=== PATIENT | male | born 1975 | race Caucasian/White ===

== ENCOUNTER → 2017-12-29 | Outpatient (CLI) | payer OTHER ==
--- NOTE | 2017-12-29 16:00 | P.STRESS ---
- Stress Test Note Stress Test Results/Findings: Exam Performed: stress test Exam Date: 12/29/17 Reason for Exam: ABN EKG Height: 5 ft 7 in Weight: 90.718 kg Protocol: Jus Stage: 3 Duration of Exercise: 11:08 Resting Heart Rate: 154 Resting Blood Pressure: 138/94 Maximum Achieved Heart Rate: 154 Maximum Achieved Blood Pressure: 205/95 85% PMHR: 153 100% PMHR: 180 METS: 12.1 Technologist Comment: Stress Test Results/Findings: This is a 42-year-old gentleman with history of hypertension, smoking and family history of ischemic heart disease being evaluated for cardiac status because of abnormal EKG. Baseline EKG showed normal OR interval and QRS duration. Blood pressure at rest is 138/94 with pulse rate of 70. Patient walked on the Jus protocol for 11 minutes achieving a maximum heart rate of 154 with a blood pressure of 201/82. EKGs taken during and after the exercise did not reveal any significant changes from the baseline. Patient did not experience any chest pain. Final impression: #1. Negative stress test #2 . Good exercise capacity #3. No arrhythmias are detected #4. Patient did not express any chest pain
== END | disposition home or self-care (01) ==
LOC: RADNMMAIN 10:55
PROVIDERS: ATTEND Nurse Practitioner Adult Health
DX: R94.31 Abnormal electrocardiogram [ECG] [EKG] (principal)
CPT/HCPCS: 93017

== ENCOUNTER 2019-04-10 03:07 | Emergency (ER) | payer OTHER ==
[2019-04-10 03:25] VITALS: RESP 18
[2019-04-10] MEDS ORDERED: SODIUM CHLORIDE 0.9% 1,000 ML IV ONE (04:07)
[2019-04-10 04:17] LABS: Basophils # (A) 0.1 k/uL (0-0.2); Basophils % (A) 0 %; Eosinophils # (A) 0.2 k/uL (0-0.7); Eosinophils % (A) 2 %; HCT 43.6 % (39.0-53.0); HGB 14.6 gm/dL (13.0-17.5); Lymphocytes # (A) 3.5 k/uL (1.0-4.8); Lymphocytes % (A) 26 %; MCHC 33.5 g/dL (31.0-37.0); MCV 86.6 fL (80.0-100.0); Mean Platelet Volume 6.7; Monocytes # (A) 0.8 k/uL (0-1.0); Monocytes % (A) 6 %; Neutrophils # (A) 8.9 k/uL (1.3-7.7); Neutrophils % (A) 65 %; Platelet Count 284 k/uL (150-450); RBC 5.04 m/uL (4.30-5.90); RDW 13.4 % (11.5-15.5); WBC 13.7 k/uL (3.8-10.6)
--- NOTE | 2019-04-10 04:27 | XR ---
EXAM: XR Abdomen, 2 Views CLINICAL HISTORY: abdominal pain TECHNIQUE: Frontal view of the abdomen/pelvis with upright view of the abdomen. COMPARISON: No relevant prior studies available. FINDINGS: Intraperitoneal space: No free air. Gastrointestinal tract: Unremarkable. No dilation. Bones/joints: Unremarkable. IMPRESSION: Normal abdominal x-rays.
[2019-04-10 04:28] LABS: Appearance,Urine Clear (Clear); Bilirubin,Urine Negative (Negative); Blood,Urine Small (Negative); Color,Urine Light Yellow; Glucose,Urine (UA) Negative (Negative); Hyaline Casts,Urine 1 /lpf (0-2); Ketones,Urine Negative (Negative); Leukocyte Esterase,Urine Negative (Negative); Mucus,Urine Rare /hpf; Nitrite,Urine Negative (Negative); Protein,Urine Negative (Negative); RBC,Urine 5 /hpf (0-5); Specific Gravity,Urine 1.016 (1.001-1.035); Urobilinogen,Urine <2.0 mg/dL (<2.0); WBC,Urine 1 /hpf (0-5)
[2019-04-10 04:36] LABS: ALT 31 U/L (21-72); AST 36 U/L (17-59); African American GFR (CKD) >90 (>60 ml/min/1.73 sqM); Albumin 4.4 g/dL (3.5-5.0); Alkaline Phosphatase 118 U/L (38-126); Amylase 71 U/L (30-110); Anion Gap 11 mmol/L; Blood Urea Nitrogen 18 mg/dL (9-20); Calcium 9.1 mg/dL (8.4-10.2); Carbon Dioxide 29 mmol/L (22-30); Chloride 95 mmol/L (98-107); Glucose 119 mg/dL (74-99); Lipase 61 U/L (23-300); Sodium 135 mmol/L (137-145); Total Bilirubin 0.7 mg/dL (0.2-1.3)
[2019-04-10] MEDS ORDERED: ONDANSETRON 4 MG/2 ML VIAL IVP STA (04:41)
[2019-04-10] MEDS ORDERED: KETOROLAC 30 MG/ML 1 ML VIAL IVP STA (04:41)
[2019-04-10 04:48] LABS: Potassium 3.5 mmol/L (3.5-5.1)
--- NOTE | 2019-04-10 04:50 | ED ---
Abdominal Pain HPI - General Chief Complaint: Abdominal Pain Stated Complaint: Abd Pain Source: patient Mode of arrival: ambulatory Limitations: no limitations - History of Present Illness Initial Comments: Aixa is a previously healthy 44-year-old male who presents the emergency department today for evaluation of sudden onset of stabbing left-sided flank pain that woke him from sleep. Patient does report a history of kidney stones 3-4 years ago, he does not follow with urology. He reports he was in his usual state of health when he went to bed last night. He woke suddenly around 3 AM with a stabbing pain in his left flank and urinary frequency. Patient reports nausea secondary to pain but has had no vomiting or diarrhea. He has no associated fevers chills or abdominal pain. - Related Data Home Medications Medication Instructions Recorded Confirmed Chlorothiazide [Diuril] 04/10/19 Previous Rx's Medication Instructions Recorded HYDROcodone/APAP 5-325MG [[place] 1 tab PO Q6HR PRN 3 Days #12 tab 04/10/19 5-325] Ondansetron [Zofran ODT] 4 mg PO Q8HR #12 tab 04/10/19 Tamsulosin [Flomax] 0.4 mg PO DAILY #7 cap 04/10/19 Allergies Allergy/AdvReac Type Severity Reaction Status Date / Time moxifloxacin HCl AdvReac Rash/Hives Verified 07/10/15 06:42 [From Avelox] prochlorperazine edisylate AdvReac Confusion Verified 07/10/15 06:42 [From Compazine] prochlorperazine maleate AdvReac Confusion Verified 07/10/15 06:42 [From Compazine] Review of Systems ROS Statement: Those systems with pertinent positive or pertinent negative responses have been documented in the HPI. ROS Other: All systems not noted in ROS Statement are negative. Past Medical History Past Medical History: Hypertension Additional Past Medical History / Comment(s): Kidney stones History of Any Multi-Drug Resistant Organisms: None Reported Past Surgical History: Ear Surgery Past Psychological History: No Psychological Hx Reported Smoking Status: Former smoker Past Alcohol Use History: Occasional Past Drug Use History: None Reported General Exam - General Exam Comments Initial Comments: Physical Exam GENERAL: Appears uncomfortable, cannot find a position of comfort HENT: Normocephalic, Atraumatic. EYES: PERRL, EOMI PULMONARY: Unlabored respirations. No audible rales rhonchi or wheezing was noted. CARDIOVASCULAR: There is a regular rate and rhythm without any murmurs gallops or rubs. ABDOMEN: Soft and nontender with normal bowel sounds. Tenderness to percussion of the left flank Bedside ultrasound reveals mild hydronephrosis of the left kidney, right kidney appears normal no stones were visible SKIN: Skin is clear with no lesions or rashes and otherwise unremarkable. : Deferred NEUROLOGIC: Patient is alert and oriented x3. Moving all extremities spontaneously MUSCULOSKELETAL: Normal extremities with adequate strength and full range of motion. No lower extremity swelling or edema. No calf tenderness. PSYCHIATRIC: Normal psychiatric evaluation Limitations: no limitations Course Vital Signs 04/10/19 04/10/19 04/10/19 03:11 03:24 04:53 Temperature 97.5 F L 98.0 F Pulse Rate 85 76 67 Respiratory 20 18 18 Rate Blood Pressure 135/86 135/86 116/79 O2 Sat by Pulse 100 99 98 Oximetry Medical Decision Making - Medical Decision Making The patient was seen and evaluated, history was obtained from the patient This is a healthy 44-year-old male presenting with sudden onset of stabbing left-sided flank pain Urine does have trace blood, CBC with mild leukocytosis likely reactive to pain BMP is unremarkable Patient received Toradol and Zofran for pain management She reported resolution of his pain with Toradol. Patient will be discharged home with a short dose of [place], Zofran for nausea and Flomax. Patient will be referred to urology for follow-up. Close return parameters were discussed all questions pertaining care were answered patient was discharged home in stable condition. - Lab Data Result diagrams: 04/10/19 03:25 04/10/19 03:25 Lab Results 04/10/19 04/10/19 04/10/19 Range/Units 03:25 03:25 03:25 WBC 13.7 H (3.8-10.6) k/uL RBC 5.04 (4.30-5.90) m/uL Hgb 14.6 (13.0-17.5) gm/dL Hct 43.6 (39.0-53.0) % MCV 86.6 (80.0-100.0) fL MCH 29.0 (25.0-35.0) pg MCHC 33.5 (31.0-37.0) g/dL RDW 13.4 (11.5-15.5) % Plt Count 284 (150-450) k/uL Neutrophils % 65 % Lymphocytes % 26 % Monocytes % 6 % Eosinophils % 2 % Basophils % 0 % Neutrophils # 8.9 H (1.3-7.7) k/uL Lymphocytes # 3.5 (1.0-4.8) k/uL Monocytes # 0.8 (0-1.0) k/uL Eosinophils # 0.2 (0-0.7) k/uL Basophils # 0.1 (0-0.2) k/uL Sodium 135 L (137-145) mmol/L Potassium 3.5 (3.5-5.1) mmol/L Chloride 95 L (98-107) mmol/L Carbon Dioxide 29 (22-30) mmol/L Anion Gap 11 mmol/L BUN 18 (9-20) mg/dL Creatinine 0.89 (0.66-1.25) mg/dL Est GFR (CKD-EPI)AfAm >90 (>60 ml/min/1.73 sqM) Est GFR (CKD-EPI)NonAf >90 (>60 ml/min/1.73 sqM) Glucose 119 H (74-99) mg/dL Calcium 9.1 (8.4-10.2) mg/dL Total Bilirubin 0.7 (0.2-1.3) mg/dL AST 36 (17-59) U/L ALT 31 (21-72) U/L Alkaline Phosphatase 118 (38-126) U/L Total Protein 7.0 (6.3-8.2) g/dL Albumin 4.4 (3.5-5.0) g/dL Amylase 71 (30-110) U/L Lipase 61 (23-300) U/L Urine Color Light Yellow Urine Appearance Clear (Clear) Urine pH 6.0 (5.0-8.0) Ur Specific [place] 1.016 (1.001-1.035) Urine Protein Negative (Negative) Urine Glucose (UA) Negative (Negative) Urine Ketones Negative (Negative) Urine Blood Small H (Negative) Urine Nitrite Negative (Negative) Urine Bilirubin Negative (Negative) Urine Urobilinogen <2.0 (<2.0) mg/dL Ur Leukocyte Esterase Negative (Negative) Urine RBC 5 (0-5) /hpf Urine WBC 1 (0-5) /hpf Hyaline Casts 1 (0-2) /lpf Urine Mucus Rare H (None) /hpf Disposition Clinical Impression: Acute left flank pain Disposition: HOME SELF-CARE Condition: Stable Instructions (If sedation given, give patient instructions): Kidney Stones (ED) Prescriptions: Tamsulosin [Flomax] 0.4 mg PO DAILY #7 cap HYDROcodone/APAP 5-325MG [[place] 5-325] 1 tab PO Q6HR PRN 3 Days #12 tab PRN Reason: Pain Ondansetron [Zofran ODT] 4 mg PO Q8HR #12 tab Is patient prescribed a controlled substance at d/c from ED?: Yes If prescribed controlled substance>3 days was MAPS reviewed?: Prescribed <3 Days Referrals: Ray Person MD [Primary Care Provider] - 1-2 days Mateo Mahmood MD [STAFF PHYSICIAN] - 1-2 days
[2019-04-10 04:55] VITALS: BP 116/79; PULSE 67; TEMP 98
== END 2019-04-10 05:35 | disposition home or self-care (01) ==
LOC: EC 03:07
DX: R10.9 Unspecified abdominal pain (principal); R35.0 Frequency of micturition; R11.0 Nausea; D72.829 Elevated white blood cell count, unspecified; I10 Essential (primary) hypertension; Z79.899 Other long term (current) drug therapy; Z88.1 Allergy status to other antibiotic agents; Z88.8 Allergy status to other drugs, medicaments and biological substances; Z87.891 Personal history of nicotine dependence; Z87.442 Personal history of urinary calculi
CPT/HCPCS: 36415; 80053; 82150; 83690; 85025; 81001; 74018; 99284; 96374; 96375; 96361; J2405; J1885

== ENCOUNTER → 2019-10-13 | Outpatient (CLI) | payer OTHER ==
--- NOTE | 2019-10-13 13:04 | US ---
EXAMINATION TYPE: US thyroid st tissue head/neck DATE OF EXAM: 10/13/2019 COMPARISON: NONE CLINICAL HISTORY: Cervical lymphadenitis I88.9. Pt states palpable left submandibular area x month, changes in size when pt eats Left submandibular area where pt feels palpable lump shows submandibular gland= 3.0 x 1.5 x 3.2 cm, adjacent normal appearing lymph node also visualized= 0.5 cm Right submandibular gland also scanned for comparison, appeared similar to left IMPRESSION: Normal soft tissue neck. Submandibular gland is at the level of the palpable region on the left.
== END ==
LOC: RADUSWWP 12:06
PROVIDERS: ATTEND Nurse Practitioner Adult Health
DX: I88.9 Nonspecific lymphadenitis, unspecified (principal)
CPT/HCPCS: 76536

== ENCOUNTER 2020-02-08 21:47 | Emergency (ER) | payer OTHER ==
[2020-02-08 21:53] VITALS: RESP 18
--- NOTE | 2020-02-08 22:49 | XR ---
EXAMINATION TYPE: XR chest 1V portable DATE OF EXAM: 02/08/2020 COMPARISON: NONE HISTORY: Cough and congestion TECHNIQUE: Single view FINDINGS: There is no heart failure nor confluent pneumonic infiltrate. Costophrenic angles are clear . There are no hilar masses. Bony thorax is intact. IMPRESSION: No active cardiopulmonary disease.
[2020-02-08 23:17] LABS: Basophils % (A) 0 %; Eosinophils % (A) 0 %; HCT 47.8 % (39.0-53.0); HGB 16.2 gm/dL (13.0-17.5); Lymphocytes # (A) 2.1 k/uL (1.0-4.8); Lymphocytes % (A) 9 %; MCH 30.1 pg (25.0-35.0); MCHC 33.9 g/dL (31.0-37.0); MCV 88.7 fL (80.0-100.0); Mean Platelet Volume 7.1; Monocytes % (A) 4 %; Neutrophils # (A) 20.8 k/uL (1.3-7.7); Neutrophils % (A) 86 %; Platelet Count 276 k/uL (150-450); RBC 5.39 m/uL (4.30-5.90); RDW 12.9 % (11.5-15.5)
[2020-02-08 23:34] LABS: ALT 47 U/L (4-49); AST 33 U/L (17-59); African American GFR (CKD) >90 (>60 ml/min/1.73 sqM); Albumin 4.8 g/dL (3.5-5.0); Alkaline Phosphatase 101 U/L (38-126); Anion Gap 8 mmol/L; Blood Urea Nitrogen 22 mg/dL (9-20); Carbon Dioxide 32 mmol/L (22-30); Chloride 94 mmol/L (98-107); Glucose 120 mg/dL (74-99); Non-African American GFR(CKD) 89 (>60 ml/min/1.73 sqM); Potassium 3.5 mmol/L (3.5-5.1); Sodium 134 mmol/L (137-145); Total Bilirubin 0.3 mg/dL (0.2-1.3); Total Protein 7.5 g/dL (6.3-8.2)
[2020-02-09] MEDS ORDERED: AZITHROMYCIN 500 MG TAB PO STA (00:44)
--- NOTE | 2020-02-09 00:51 | ED ---
General Adult HPI - General Chief complaint: Upper Respiratory Infection Stated complaint: Cough Time Seen by Provider: 02/08/20 21:50 Source: patient Mode of arrival: ambulatory Limitations: no limitations - History of Present Illness Initial comments: The patient is a 45-year-old male with past medical history of hypertension and presents emergency room report a cough. He states that he has had cough, congestion and shortness of breath for the past week. He followed up in his primary care office on Wednesday. They did perform a chest x-ray and diagnosed him with pneumonia. He was started on Ceftin, prednisone and inhaler. States he's been using medications as directed however continues to feel short of breath and have coughing fits. States his coughing fits or so severe that he has passed out several times and hit his head. He denies any headaches or visual changes. No underlying lung conditions. Denies fevers or chills. No chest pain or history of cardiac disease. There are no alleviating, precipitating or modifying factors - Related Data Home Medications Medication Instructions Recorded Confirmed Chlorothiazide [Diuril] 04/10/19 Previous Rx's Medication Instructions Recorded HYDROcodone/APAP 5-325MG [[place] 1 tab PO Q6HR PRN 3 Days #12 tab 04/10/19 5-325] Ondansetron [Zofran ODT] 4 mg PO Q8HR #12 tab 04/10/19 Tamsulosin [Flomax] 0.4 mg PO DAILY #7 cap 04/10/19 Azithromycin [Zithromax Z-pack] 0 mg PO DIRECTED #1 pack 02/09/20 guaiFENesin-Coden 100-10MG/5ML 10 ml PO Q6H PRN 3 Days #120 ml 02/09/20 [Robitussin AC] Allergies Allergy/AdvReac Type Severity Reaction Status Date / Time moxifloxacin HCl AdvReac Rash/Hives Verified 02/08/20 21:54 [From Avelox] prochlorperazine edisylate AdvReac Confusion Verified 02/08/20 21:54 [From Compazine] prochlorperazine maleate AdvReac Confusion Verified 02/08/20 21:54 [From Compazine] Review of Systems ROS Statement: Those systems with pertinent positive or pertinent negative responses have been documented in the HPI. ROS Other: All systems not noted in ROS Statement are negative. Past Medical History Past Medical History: Hypertension Additional Past Medical History / Comment(s): Kidney stones History of Any Multi-Drug Resistant Organisms: None Reported Past Surgical History: Ear Surgery Past Psychological History: No Psychological Hx Reported Smoking Status: Former smoker Past Alcohol Use History: Occasional Past Drug Use History: None Reported General Exam Limitations: no limitations General appearance: alert, in no apparent distress Head exam: Present: atraumatic, normocephalic, normal inspection Eye exam: Present: normal appearance, PERRL, EOMI. Absent: scleral icterus, conjunctival injection, periorbital swelling ENT exam: Present: normal exam, mucous membranes moist Neck exam: Present: normal inspection. Absent: tenderness, meningismus, lymphadenopathy Respiratory exam: Present: normal lung sounds bilaterally, other (bronchospastic cough). Absent: respiratory distress, wheezes, rales, rhonchi, stridor Cardiovascular Exam: Present: regular rate, normal rhythm, normal heart sounds. Absent: systolic murmur, diastolic murmur, rubs, gallop, clicks GI/Abdominal exam: Present: soft, normal bowel sounds. Absent: distended, tenderness, guarding, rebound, rigid Extremities exam: Present: normal inspection, full ROM, normal capillary refill. Absent: tenderness, pedal edema, joint swelling, calf tenderness Back exam: Present: normal inspection Neurological exam: Present: alert, oriented X3, CN II-XII intact Psychiatric exam: Present: normal affect, normal mood Skin exam: Present: warm, dry, intact, normal color. Absent: rash Course Vital Signs 02/08/20 02/08/20 02/09/20 21:48 23:30 00:57 Temperature 97.4 F L 98.1 F Pulse Rate 96 84 88 Respiratory 18 18 18 Rate Blood Pressure 173/104 149/89 156/85 O2 Sat by Pulse 98 96 97 Oximetry Medical Decision Making - Medical Decision Making Upon arrival the patient is placed into room 16. A thorough history and physical exam is performed. Pulse ox is 96%. No increased work of breathing. I did recommend laboratory studies as the patient does appear to be feeling his outpatient treatment. We'll also consult elevated at 24,000. Lactic acid is 2.4. Influenza A/B are not detected. The patient was tested for covid at [facility] and was negative. Chest x-ray demonstrates no acute findings. Discussed diagnosis, differential and treatment options. I did recommend hospital admission for IV antibiotics however the patient refused as he is concerned about the current Covid pandemic. Patient feels more comfortable going home. I will add azithromycin to his home regimen. I will also provide the patient with prescription for Robitussin-AC. He does sign an opiate start talking form. The patient was have repeat blood work in 1 week to ensure that his white blood cell count has improved. The patient has no improvement in symptoms he must return for hospital admission. Patient was in agreement this and he was discharged home in stable condition - Lab Data Result diagrams: 02/08/20 23:05 02/08/20 23:00 Lab Results 02/08/20 02/08/20 02/08/20 Range/Units 22:45 23:00 23:00 WBC (3.8-10.6) k/uL RBC (4.30-5.90) m/uL Hgb (13.0-17.5) gm/dL Hct (39.0-53.0) % MCV (80.0-100.0) fL MCH (25.0-35.0) pg MCHC (31.0-37.0) g/dL RDW (11.5-15.5) % Plt Count (150-450) k/uL Neutrophils % % Lymphocytes % % Monocytes % % Eosinophils % % Basophils % % Neutrophils # (1.3-7.7) k/uL Lymphocytes # (1.0-4.8) k/uL Monocytes # (0-1.0) k/uL Eosinophils # (0-0.7) k/uL Basophils # (0-0.2) k/uL Sodium 134 L (137-145) mmol/L Potassium 3.5 (3.5-5.1) mmol/L Chloride 94 L (98-107) mmol/L Carbon Dioxide 32 H (22-30) mmol/L Anion Gap 8 mmol/L BUN 22 H (9-20) mg/dL Creatinine 1.03 (0.66-1.25) mg/dL Est GFR (CKD-EPI)AfAm >90 (>60 ml/min/1.73 sqM) Est GFR (CKD-EPI)NonAf 89 (>60 ml/min/1.73 sqM) Glucose 120 H (74-99) mg/dL Lactic Ac Sepsis Rflx Plasma Lactic Acid Oziel 2.4 H* (0.7-2.0) mmol/L Calcium 10.0 (8.4-10.2) mg/dL Total Bilirubin 0.3 (0.2-1.3) mg/dL AST 33 (17-59) U/L ALT 47 (4-49) U/L Alkaline Phosphatase 101 (38-126) U/L Total Protein 7.5 (6.3-8.2) g/dL Albumin 4.8 (3.5-5.0) g/dL Influenza Type A RNA Not Detected (Not Detectd) Influenza Type B (PCR) Not Detected (Not Detectd) 02/08/20 02/08/20 Range/Units 23:05 23:45 WBC 24.0 H (3.8-10.6) k/uL RBC 5.39 (4.30-5.90) m/uL Hgb 16.2 (13.0-17.5) gm/dL Hct 47.8 (39.0-53.0) % MCV 88.7 (80.0-100.0) fL MCH 30.1 (25.0-35.0) pg MCHC 33.9 (31.0-37.0) g/dL RDW 12.9 (11.5-15.5) % Plt Count 276 (150-450) k/uL Neutrophils % 86 % Lymphocytes % 9 % Monocytes % 4 % Eosinophils % 0 % Basophils % 0 % Neutrophils # 20.8 H (1.3-7.7) k/uL Lymphocytes # 2.1 (1.0-4.8) k/uL Monocytes # 1.0 (0-1.0) k/uL Eosinophils # 0.0 (0-0.7) k/uL Basophils # 0.0 (0-0.2) k/uL Sodium (137-145) mmol/L Potassium (3.5-5.1) mmol/L Chloride (98-107) mmol/L Carbon Dioxide (22-30) mmol/L Anion Gap mmol/L BUN (9-20) mg/dL Creatinine (0.66-1.25) mg/dL Est GFR (CKD-EPI)AfAm (>60 ml/min/1.73 sqM) Est GFR (CKD-EPI)NonAf (>60 ml/min/1.73 sqM) Glucose (74-99) mg/dL Lactic Ac Sepsis Rflx Y Plasma Lactic Acid Oziel (0.7-2.0) mmol/L Calcium (8.4-10.2) mg/dL Total Bilirubin (0.2-1.3) mg/dL AST (17-59) U/L ALT (4-49) U/L Alkaline Phosphatase (38-126) U/L Total Protein (6.3-8.2) g/dL Albumin (3.5-5.0) g/dL Influenza Type A RNA (Not Detectd) Influenza Type B (PCR) (Not Detectd) Disposition Clinical Impression: Cough, Leukocytosis Disposition: HOME SELF-CARE Condition: Stable Instructions (If sedation given, give patient instructions): Upper Respiratory Infection (ED) Additional Instructions: Please follow-up with Dr. Person. I do want him to repeat your white blood cell count in one week. Return to the ED for any new or worsening symptoms. Continue taking the other antibiotics and steroids Prescriptions: guaiFENesin-Coden 100-10MG/5ML [Robitussin AC] 10 ml PO Q6H PRN 3 Days #120 ml PRN Reason: cough Azithromycin [Zithromax Z-pack] 0 mg PO DIRECTED #1 pack Is patient prescribed a controlled substance at d/c from ED?: Yes When asked, does pt state using other controlled substances?: No If prescribed controlled substance>3 days was MAPS reviewed?: Prescribed <3 Days If opioid is for acute pain is fill amount 7 days or less?: Yes If Rx opioid, was Start Talking consent form obtained?: Yes Referrals: Ray Person MD [Primary Care Provider] - 1-2 days Time of Disposition: 00:51
[2020-02-09 00:57] VITALS: BP 156/85; PULSE 88; TEMP 98.1
== END 2020-02-09 00:57 | disposition home or self-care (01) ==
LOC: EC 21:47
DX: D72.829 Elevated white blood cell count, unspecified (principal); R05 Cough; R06.02 Shortness of breath; R09.89 Other specified symptoms and signs involving the circulatory and respiratory systems; I10 Essential (primary) hypertension; Z79.899 Other long term (current) drug therapy; Z87.891 Personal history of nicotine dependence; Z88.1 Allergy status to other antibiotic agents; Z88.8 Allergy status to other drugs, medicaments and biological substances
CPT/HCPCS: 36415; 71045; 80053; 83605; 85025; 87502; 99283

== ENCOUNTER 2020-02-18 13:52 | Inpatient (IN) | payer OTHER ==
[2020-02-18] MEDS ORDERED: SODIUM CHLORIDE 0.9% 1,000 ML IV ONE (14:34)
[2020-02-18] MEDS ORDERED: methylPREDNISolone SOD SUCCI 125 MG/2 ML VIAL IV STA (14:34)
[2020-02-18] MEDS ORDERED: IPRATROPIUM-ALBUTEROL 3 ML NEB INHALATION STA (14:34)
[2020-02-18] MEDS ORDERED: ALBUTEROL NEB (CONC) 2.5 MG/0.5 ML INHALATION STA (14:34)
[2020-02-18 15:03] LABS: Basophils # (A) 0.1 k/uL (0-0.2); Basophils % (A) 1 %; Eosinophils # (A) 0.4 k/uL (0-0.7); Eosinophils % (A) 3 %; HCT 46.5 % (39.0-53.0); HGB 15.3 gm/dL (13.0-17.5); Lymphocytes # (A) 2.1 k/uL (1.0-4.8); Lymphocytes % (A) 14 %; MCH 29.7 pg (25.0-35.0); MCHC 32.8 g/dL (31.0-37.0); MCV 90.6 fL (80.0-100.0); Mean Platelet Volume 6.6; Monocytes % (A) 7 %; Neutrophils # (A) 11.3 k/uL (1.3-7.7); Neutrophils % (A) 76 %; Platelet Count 246 k/uL (150-450); RBC 5.14 m/uL (4.30-5.90); RDW 13.4 % (11.5-15.5)
[2020-02-18 15:12] LABS: ALT 107 U/L (4-49); AST 47 U/L (17-59); African American GFR (CKD) >90 (>60 ml/min/1.73 sqM); Albumin 4.5 g/dL (3.5-5.0); Alkaline Phosphatase 116 U/L (38-126); Anion Gap 8 mmol/L; Blood Urea Nitrogen 20 mg/dL (9-20); Calcium 9.5 mg/dL (8.4-10.2); Carbon Dioxide 30 mmol/L (22-30); Chloride 102 mmol/L (98-107); Glucose 97 mg/dL (74-99); Non-African American GFR(CKD) >90 (>60 ml/min/1.73 sqM); Potassium 3.7 mmol/L (3.5-5.1); Sodium 140 mmol/L (137-145); Total Bilirubin 0.5 mg/dL (0.2-1.3); Total Protein 7.2 g/dL (6.3-8.2)
--- NOTE | 2020-02-18 15:31 | XR ---
EXAMINATION TYPE: XR chest 1V portable DATE OF EXAM: 02/18/2020 COMPARISON: 02/08/2020 INDICATION: Cough wheezing x2 weeks short of breath TECHNIQUE: Single frontal view of the chest is obtained. FINDINGS: The heart size is normal. The pulmonary vasculature is normal. The lungs are clear. IMPRESSION: 1. No acute pulmonary process.
--- NOTE | 2020-02-18 16:08 | ED ---
URI HPI - General Chief Complaint: Upper Respiratory Infection Stated Complaint: SOB Time Seen by Provider: 02/18/20 13:58 Source: patient Mode of arrival: ambulatory Limitations: no limitations - History of Present Illness Initial Comments: 45-year-old male patient presents to the emergency department today for evaluation of shortness of breath and wheezing. Patient states he has been sick for the last 2 weeks with upper respiratory infection and cough. Patient states that he does have mild sputum production, denies any hemoptysis. States his ch est feels tight and heavy. Patient states that he is short of breath at rest and significantly short of breath with activity. States that he has completed a azithromycin and is nearly done with a course of cefdinir and has completed a course of azithromycin. Patient has also completed two courses of steroids without relief. He denies any fever or chills. Denies nausea, vomiting, diarrhea, loss of taste or smell. Patient denies any recent rash, abdominal pain, constipation, back pain, numbness, tingling, dizziness, weakness, hematuria, dysuria, urinary urgency, urinary frequency, headache, visual changes, or any other complaints. - Related Data Home Medications Medication Instructions Recorded Confirmed Chlorothiazide [Diuril] 04/10/19 Previous Rx's Medication Instructions Recorded HYDROcodone/APAP 5-325MG [Beverly 1 tab PO Q6HR PRN 3 Days #12 tab 04/10/19 5-325] Ondansetron [Zofran ODT] 4 mg PO Q8HR #12 tab 04/10/19 Tamsulosin [Flomax] 0.4 mg PO DAILY #7 cap 04/10/19 Azithromycin [Zithromax Z-pack] 0 mg PO DIRECTED #1 pack 02/09/20 guaiFENesin-Coden 100-10MG/5ML 10 ml PO Q6H PRN 3 Days #120 ml 02/09/20 [Robitussin AC] Allergies Allergy/AdvReac Type Severity Reaction Status Date / Time moxifloxacin HCl AdvReac Rash/Hives Verified 02/08/20 21:54 [From Avelox] prochlorperazine edisylate AdvReac Confusion Verified 02/08/20 21:54 [From Compazine] prochlorperazine maleate AdvReac Confusion Verified 02/08/20 21:54 [From Compazine] Review of Systems ROS Statement: Those systems with pertinent positive or pertinent negative responses have been documented in the HPI. ROS Other: All systems not noted in ROS Statement are negative. Past Medical History Past Medical History: Hypertension, Pneumonia Additional Past Medical History / Comment(s): Kidney stones History of Any Multi-Drug Resistant Organisms: None Reported Past Surgical History: Ear Surgery Past Psychological History: No Psychological Hx Reported Smoking Status: Former smoker Past Alcohol Use History: Occasional Past Drug Use History: None Reported General Exam Limitations: no limitations General appearance: alert, in no apparent distress, other (This is a well- developed, well-nourished adult male patient in no acute distress. Vital signs upon presentation are temperature 98.0F, pulse 80, respirations 18, blood pressure 153/102, pulse ox 95% on room air.) Eye exam: Present: normal appearance, PERRL, EOMI. Absent: scleral icterus, conjunctival injection, periorbital swelling Respiratory exam: Present: respiratory distress (Mild), wheezes (Diffuse inspira tory and expiratory wheezing noted in the posterior lung esparza). Absent: normal lung sounds bilaterally, rales, rhonchi, stridor Cardiovascular Exam: Present: regular rate, normal rhythm, normal heart sounds. Absent: systolic murmur, diastolic murmur, rubs, gallop, clicks GI/Abdominal exam: Present: soft, normal bowel sounds. Absent: distended, tenderness, guarding, rebound, rigid Neurological exam: Present: alert, oriented X3, CN II-XII intact Psychiatric exam: Present: normal affect, normal mood Skin exam: Present: warm, dry, intact, normal color. Absent: rash Course Vital Signs 02/18/20 02/18/20 02/18/20 13:53 14:55 15:15 Temperature 98 F Pulse Rate 80 88 Respiratory 18 24 20 Rate Blood Pressure 153/102 O2 Sat by Pulse 95 Oximetry 02/18/20 15:28 Temperature Pulse Rate 92 Respiratory 18 Rate Blood Pressure O2 Sat by Pulse Oximetry Medical Decision Making - Medical Decision Making 45-year-old male patient presented to the emergency department today for evaluation of wheezing and shortness of breath. Patient had symptoms for the last 2 weeks. He has completed 2 courses of steroids and antibiotics without relief. Patient becomes significantly short of breath with activity and exhibits mild shortness of breath at rest. He was given IV steroids and breathing treatments here in the emergency department, upon reevaluation he continues to report shortness of breath and feeling unwell. He does not feel comfortable being discharged home at this time. My attending Dr. Everett did speak to the on-call physician Dr. Rice who agrees for admission. We did add labs. We will continue steroids and give IV azithromycin. Pulmonology has been consulted. Patient is agreeable with this plan. - Lab Data Result diagrams: 02/18/20 14:45 02/18/20 14:45 Lab Results 02/18/20 02/18/20 02/18/20 Range/Units 14:45 14:45 14:45 WBC 15.0 H (3.8-10.6) k/uL RBC 5.14 (4.30-5.90) m/uL Hgb 15.3 (13.0-17.5) gm/dL Hct 46.5 (39.0-53.0) % MCV 90.6 (80.0-100.0) fL MCH 29.7 (25.0-35.0) pg MCHC 32.8 (31.0-37.0) g/dL RDW 13.4 (11.5-15.5) % Plt Count 246 (150-450) k/uL Neutrophils % 76 % Lymphocytes % 14 % Monocytes % 7 % Eosinophils % 3 % Basophils % 1 % Neutrophils # 11.3 H (1.3-7.7) k/uL Lymphocytes # 2.1 (1.0-4.8) k/uL Monocytes # 1.0 (0-1.0) k/uL Eosinophils # 0.4 (0-0.7) k/uL Basophils # 0.1 (0-0.2) k/uL D-Dimer 0.29 (<0.60) mg/L FEU Sodium 140 (137-145) mmol/L Potassium 3.7 (3.5-5.1) mmol/L Chloride 102 (98-107) mmol/L Carbon Dioxide 30 (22-30) mmol/L Anion Gap 8 mmol/L BUN 20 (9-20) mg/dL Creatinine 0.91 (0.66-1.25) mg/dL Est GFR (CKD-EPI)AfAm >90 (>60 ml/min/1.73 sqM) Est GFR (CKD-EPI)NonAf >90 (>60 ml/min/1.73 sqM) Glucose 97 (74-99) mg/dL Plasma Lactic Acid Oziel (0.7-2.0) mmol/L Calcium 9.5 (8.4-10.2) mg/dL Total Bilirubin 0.5 (0.2-1.3) mg/dL AST 47 (17-59) U/L ALT 107 H (4-49) U/L Alkaline Phosphatase 116 (38-126) U/L Total Protein 7.2 (6.3-8.2) g/dL Albumin 4.5 (3.5-5.0) g/dL Coronavirus (PCR) (Not Detectd) 02/18/20 02/18/20 Range/Units 14:45 14:45 WBC (3.8-10.6) k/uL RBC (4.30-5.90) m/uL Hgb (13.0-17.5) gm/dL Hct (39.0-53.0) % MCV (80.0-100.0) fL MCH (25.0-35.0) pg MCHC (31.0-37.0) g/dL RDW (11.5-15.5) % Plt Count (150-450) k/uL Neutrophils % % Lymphocytes % % Monocytes % % Eosinophils % % Basophils % % Neutrophils # (1.3-7.7) k/uL Lymphocytes # (1.0-4.8) k/uL Monocytes # (0-1.0) k/uL Eosinophils # (0-0.7) k/uL Basophils # (0-0.2) k/uL D-Dimer (<0.60) mg/L FEU Sodium (137-145) mmol/L Potassium (3.5-5.1) mmol/L Chloride (98-107) mmol/L Carbon Dioxide (22-30) mmol/L Anion Gap mmol/L BUN (9-20) mg/dL Creatinine (0.66-1.25) mg/dL Est GFR (CKD-EPI)AfAm (>60 ml/min/1.73 sqM) Est GFR (CKD-EPI)NonAf (>60 ml/min/1.73 sqM) Glucose (74-99) mg/dL Plasma Lactic Acid Oziel 1.4 (0.7-2.0) mmol/L Calcium (8.4-10.2) mg/dL Total Bilirubin (0.2-1.3) mg/dL AST (17-59) U/L ALT (4-49) U/L Alkaline Phosphatase (38-126) U/L Total Protein (6.3-8.2) g/dL Albumin (3.5-5.0) g/dL Coronavirus (PCR) Not Detected (Not Detectd) - Radiology Data Radiology results: report reviewed, image reviewed One view x-ray of the chest is obtained. Report was reviewed in its entirety. Impression by Dr. Mckeon shows no acute pulmonary process. Disposition Clinical Impression: Dyspnea, Wheezing Disposition: ADMITTED IP TO THIS [facility] Condition: Serious Referrals: Ray Person MD [Primary Care Provider] - 1-2 days Decision to Admit Reason: Admit from EC Decision Date: 02/18/20 Decision Time: 16:35
[2020-02-18] MEDS ORDERED: IPRATROPIUM-ALBUTEROL 3 ML NEB INHALATION PRN (16:32)
[2020-02-18] MEDS ORDERED: AZITHROMYCIN 500 MG in SODIUM CHLORIDE 0.9% 250 ML IVPB STA (16:34)
[2020-02-18 16:53] LABS: C Reactive Protein 19.3 mg/L (<10.0); Magnesium 2.3 mg/dL (1.6-2.3)
[2020-02-18] MEDS ORDERED: IPRATROPIUM-ALBUTEROL 3 ML NEB INHALATION SCH (20:00)
--- NOTE | 2020-02-18 20:12 | P.HPIM ---
History of Present Illness H&P Date: 02/18/20 Chief Complaint: wheezing Patient is a 45-year-old male past medical history of high blood pressure, once yearly pneumonia that he typically takes antibiotics and uses a nebulizer 4, and recent smoking cessation approximately 2 months ago who presented to the emergency department secondary to shortness of breath and wheezing. The ER he underwent extensive evaluation. Vital signs within normal limits on admission. Laboratory analysis showed a white blood cell count 15, CRP slightly elevated at 19.3, Covid negative. Chest x-ray showed no acute process. In the ER he received 2 [id number] breathing treatments, Solu- Medrol, and IV Zithromax. He did not have significant improvement in his wheezing and he was subsequently admitted for acute bronchitis. Patient seen and examined at bedside. He has been sick for the last 3-4 weeks with cough productive of clear sputum, shortness of breath, runny nose, stuffy nose, postnasal drip. He's been seen at Dr. Person's office multiple times in the ER at [facility] and here. He has had 2 rounds of antibiotics of Ceftin year and a Z-Damian, he is also had 2 rounds of steroids. He was seen last approximately 4 days ago and given a prescription for nystatin and Pepcid. He reports that last evening he again started having coughing fits and wheezing. He states every 30 minutes he was either using his inhaler or his nebulizers it was without relief. This morning he used his nebulizer twice and inhalers still without relief and presented to the ER. He reports that his breathing is worse when he tries to lay down as he feels the sputum building up or with ambulation. No fevers at home, no chills, no nausea, no vomiting, no diarrhea. Appetite has been well. He has been feeling slightly more fatigued. He reports that his ribs ache when he coughs that he is starting to develop a sore throat. He denies any recent exposure to different chemicals, new carpet, new pets or any new potential allergens that he could think of. Review of Systems Pertinent positives and negatives as discussed in HPI, a complete review of systems was performed and all other systems are negative. Past Medical History Past Medical History: Hypertension, Pneumonia Additional Past Medical History / Comment(s): Kidney stones History of Any Multi-Drug Resistant Organisms: None Reported Past Surgical History: Ear Surgery Additional Past Surgical History / Comment(s): Tympanostomy tubes Past Anesthesia/Blood Transfusion Reactions: No Reported Reaction Past Psychological History: No Psychological Hx Reported Smoking Status: Former smoker Past Alcohol Use History: Occasional Past Drug Use History: None Reported Additional History: Quit smoking 2 months ago, works outside, lives with his - Past Family History Father Family Medical History: Hypertension Medications and Allergies Home Medications Medication Instructions Recorded Confirmed Type Albuterol Inhaler [Ventolin Hfa 2 puff INHALATION RT-QID PRN 02/18/20 02/18/20 History Inhaler] Albuterol Nebulized [Ventolin 2.5 mg INHALATION RT-BID PRN 02/18/20 02/18/20 History Nebulized] Cefdinir [Omnicef] 300 mg PO BID 02/18/20 02/18/20 History Chlorthalidone 25 mg PO HS 02/18/20 02/18/20 History Famotidine 20 mg PO BID 02/18/20 02/18/20 History Fluticasone/Vilanterol [Breo 1 puff INHALATION RT-DAILY@1500 02/18/20 02/18/20 History Ellipta 200-25 Mcg INH] Nystatin 100,000 Unit/ml Susp 500,000 unit PO QID 02/18/20 02/18/20 History [Mycostatin Oral Susp] Allergies Allergy/AdvReac Type Severity Reaction Status Date / Time moxifloxacin HCl AdvReac Rash/Hives/Shortness Verified 02/18/20 17:15 [From Avelox] of Breath prochlorperazine edisylate AdvReac Confusion Verified 02/18/20 17:15 [From Compazine] prochlorperazine maleate AdvReac Confusion Verified 02/18/20 17:15 [From Compazine] Physical Exam Osteopathic Statement: *. No significant issues noted on an osteopathic struc tural exam other than those noted in the History and Physical/Consult. Vitals: Vital Signs Temp Pulse Pulse Resp BP BP Pulse Ox 02/18/20 18:25 98.4 F 79 20 143/98 93 L 02/18/20 15:28 92 18 02/18/20 15:15 88 20 02/18/20 14:55 24 02/18/20 13:53 98 F 80 18 153/102 95 Intake and Output 02/18/20 02/18/20 02/18/20 06:59 14:59 22:59 Other: Weight 90.718 kg 90.718 kg General: ill appearing, mild distress, appears at stated age, normal weight Derm: no unusual rashes/lesions no unusual ecchymoses, warm, dry Head: atraumatic, normocephalic, symmetric Eyes: EOMI, no lid lag, anicteric sclera, pupils equal round reactive to light ENT: Nose and ears atraumatic, no thrush, no pharyngeal erythema Neck: No thyromegaly, no cervical lymphadenopathy, trachea midline, supple Mouth: no lip lesion, mucus membranes moist Cardiovascular: S1S2 reg, no murmur, positive posterior tibial pulse bilateral, no edema, capillary refill less than 2 seconds Lungs: wheeze and ronchi that clears with cough bilateral , no accessory muscle use Abdominal: soft, nontender to palpation, no guarding, no appreciable organomegaly, normal bowel sounds Ext: no gross muscle atrophy, muscle strength 5 out of 5 in all 4 extremities grossly, no contractures, Neuro: CN II-XI grossly intact, light touch intact all 4 extremities, finger to nose within normal limits, Psych: Alert, oriented, appropriate affect Results CBC & Chem 7: 02/18/20 14:45 02/18/20 14:45 Labs: Abnormal Lab Results - Last 24 Hours (Table) 02/18/20 02/18/20 02/18/20 Range/Units 14:45 14:45 14:45 WBC 15.0 H (3.8-10.6) k/uL Neutrophils # 11.3 H (1.3-7.7) k/uL ALT 107 H (4-49) U/L C-Reactive Protein 19.3 H (<10.0) mg/L CT scan - chest: report reviewed Thrombosis Risk Factor Assmnt - DVT/VTE Prophylaxis DVT/VTE Prophylaxis: Low risk, early ambulation encouraged - Choose All That Apply Any of the Below Risk Factors Present?: Yes Each Factor Represents 1 point: Age 41-60 years Other Risk Factors: No Other congenital or acquired thrombophilia - If yes, enter type in comment: No Thrombosis Risk Factor Assessment Total Risk Factor Score: 1 Thrombosis Risk Factor Assessment Level: Low Risk Assessment and Plan Assessment: Acute bronchitis with possible acute exacerbation of undiagnosed COPD -Steroids, antibiotics, bronchodilators -Pulmonary consult -Pulmonary hygiene -Trial of PPI Hypertensive urgency - Resume home chlorthalidone -Follow blood pressures Thrush -Continue with nystatin The patient is admitted with an anticipated greater than 2 midnight stay for evaluation of acute bronchitis. Surrogate decision-maker: CODE STATUS: Full DVT prophylaxis: SCDs Discussed with: Patient Anticipated discharge date: 1-[address]: home A total of 65 minutes was spent on the care of this complex patient more than 50% of the time was spent in counseling and care coordination.
[2020-02-18] MEDS ORDERED: NALOXONE 0.4 MG/ML 1 ML VIAL IV PRN (20:13)
[2020-02-18] MEDS ORDERED: HYDROcodone/APAP 5-325MG 1 EACH TAB PO PRN (20:13)
[2020-02-18] MEDS ORDERED: ACETAMINOPHEN TAB 325 MG TAB PO PRN (20:13)
[2020-02-18] MEDS ORDERED: ONDANSETRON 4 MG/2 ML VIAL IVP PRN (20:13)
[2020-02-18] MEDS: methylPREDNISolone SOD SUCCI 125 MG/2 ML VIAL IV SCH (21:08)
[2020-02-18] MEDS: NYSTATIN 100,000 UNIT/ML SUSP 500,000 UNIT/5 ML CUP PO SCH (21:10)
[2020-02-18] MEDS: CHLORTHALIDONE 25 MG TAB PO SCH (21:22)
[2020-02-19] MEDS: methylPREDNISolone SOD SUCCI 125 MG/2 ML VIAL IV SCH ×4 (01:31→17:28)
--- NOTE | 2020-02-19 02:21 | CT ---
EXAMINATION TYPE: CT brain aric smith DATE OF EXAM: 02/19/2020 COMPARISON: None HISTORY: fall headache. Neck pain CT DLP: 1564.9 mGycm Automated exposure control for dose reduction was used. Ventricles and sulci appear normal. There is no mass effect nor midline shift. There is no sign of in tracranial hemorrhage. The calvarium is intact. There is no evidence of cerebral edema. There is very little pneumatization of the mastoid sinuses. There is mild straightening of the cervical spine. There is spurring of the endplates. The posterior elements are intact. There is no evidence of a fracture. Skull base is intact. IMPRESSION: Mild spondylosis in the lower cervical spine. No fracture. Negative CT scan of the brain. 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
[2020-02-19 07:23] LABS: HCT 42.5 % (39.0-53.0); HGB 14.4 gm/dL (13.0-17.5); MCH 30.5 pg (25.0-35.0); MCHC 33.8 g/dL (31.0-37.0); MCV 90.1 fL (80.0-100.0); Mean Platelet Volume 7.3; Platelet Count 217 k/uL (150-450); RBC 4.72 m/uL (4.30-5.90); RDW 13.6 % (11.5-15.5); WBC 17.3 k/uL (3.8-10.6)
[2020-02-19 07:34] LABS: African American GFR (CKD) >90 (>60 ml/min/1.73 sqM); Anion Gap 11 mmol/L; Blood Urea Nitrogen 19 mg/dL (9-20); Calcium 9.3 mg/dL (8.4-10.2); Carbon Dioxide 25 mmol/L (22-30); Chloride 100 mmol/L (98-107); Glucose 138 mg/dL (74-99); Non-African American GFR(CKD) >90 (>60 ml/min/1.73 sqM); Potassium 4.1 mmol/L (3.5-5.1); Sodium 136 mmol/L (137-145)
[2020-02-19] MEDS: ALBUTEROL HFA INHALER INHALATION SCH ×4 (08:32→19:54)
[2020-02-19] MEDS: NYSTATIN 100,000 UNIT/ML SUSP 500,000 UNIT/5 ML CUP PO SCH ×4 (09:48→21:23)
[2020-02-19] MEDS: CALCIUM CARBONATE 500 MG CHEWABLE PO SCH ×3 (09:48→21:22)
[2020-02-19 10:46] LABS: Ferritin 202.2 ng/mL (22.0-322.0)
--- NOTE | 2020-02-19 12:03 | P.CNPUL ---
History of Present Illness Consult date: 02/19/20 Requesting physician: Pretty Richards Reason for consult: dyspnea Chief complaint: Severe cough, cough syncope, COPD exacerbation with acute bronchitis History of present illness: 45-year-old white male patient of Dr. Person with past history of smoking, in remission for the past year, has been having symptoms of cough, wheezing and congestion for last 2 weeks. Patient has a home nebulizer, usually has a yearly episode of bronchitis or pneumonia that he typically takes antibiotics for. He presented to the emergency department on 02/18/2020 for evaluation of worsening shortness of breath, wheezing, mild sputum production which he describes as clear in color. No hemoptysis, reports some chest tightness and heaviness, exertional dyspnea. He completed a course of azithromycin and is nearly done with the course of Cefdinir, and 2 courses of steroids without relief. He denied any fever or chills, denied any nausea, vomiting, diarrhea, denied any loss of taste or smell. No rash, no abdominal pain, no lightheadedness or dizziness, no weakness, no headaches. Chest x-ray showed no acute pulmonary process. Labs showed white blood cell count 15.0, hemoglobin of 15.3, platelet count was 246, neutrophil, is 11.3, d-dimer 0.29, electrolytes and renal profile were within normal limits, plasma lactic acid is 1.4, ferritin level was within normal limits at 202, AST was 47, ALT was 107, alkaline phosphatase was 116, LDH was 508, CRP was 19.3, coronavirus was negative. Patient was started on combination of IV steroids, azithromycin, DuoNeb nebulized treatments. He is feeling better on today's exam, vital signs are stable, her pulse ox is 92-95%, his been afebrile, hemodynamically stable, only occasional cough with production of small amount of clear sputum, he is responded well to IV steroids, breathing treatments, lung sounds are clear on today's exam. Follow-up labs have been reviewed, showing white blood cell count 17.3, hemoglobin is 14.4, electrolytes and renal profile are unremarkable. Can probably be discharged home today. CT of the head and C-spine was completed in view of patient's fall, and neck pain, and showed mild spondylosis in the lower cervical spine, no fracture, and a negative computed tomography scan of the brain. Review of Systems All systems: negative Constitutional: Denies chills, Denies fever Eyes: denies blurred vision, denies pain Ears, nose, mouth and throat: Denies headache, Denies sore throat Cardiovascular: Denies chest pain, Denies shortness of breath Respiratory: Reports cough with sputum, Reports dyspnea, Denies cough Gastrointestinal: Denies abdominal pain, Denies diarrhea, Denies nausea, Denies vomiting Musculoskeletal: Denies myalgias Integumentary: Denies pruritus, Denies rash Neurological: Denies numbness, Denies weakness Psychiatric: Denies anxiety, Denies depression Endocrine: Denies fatigue, Denies weight change Past Medical History Past Medical History: Hypertension, Pneumonia Additional Past Medical History / Comment(s): Kidney stones History of Any Multi-Drug Resistant Organisms: None Reported Past Surgical History: Ear Surgery Additional Past Surgical History / Comment(s): Tympanostomy tubes Past Anesthesia/Blood Transfusion Reactions: No Reported Reaction Past Psychological History: No Psychological Hx Reported Smoking Status: Former smoker Past Alcohol Use History: Occasional Past Drug Use History: None Reported - Past Family History Father History Unknown: Yes Family Medical History: Hypertension Medications and Allergies Home Medications Medication Instructions Recorded Confirmed Type Albuterol Inhaler [Ventolin Hfa 2 puff INHALATION RT-QID PRN 02/18/20 02/18/20 History Inhaler] Albuterol Nebulized [Ventolin 2.5 mg INHALATION RT-BID PRN 02/18/20 02/18/20 History Nebulized] Cefdinir [Omnicef] 300 mg PO BID 02/18/20 02/18/20 History Chlorthalidone 25 mg PO HS 02/18/20 02/18/20 History Famotidine 20 mg PO BID 02/18/20 02/18/20 History Fluticasone/Vilanterol [Breo 1 puff INHALATION RT-DAILY@1500 02/18/20 02/18/20 History Ellipta 200-25 Mcg INH] Nystatin 100,000 Unit/ml Susp 500,000 unit PO QID 02/18/20 02/18/20 History [Mycostatin Oral Susp] Allergies Allergy/AdvReac Type Severity Reaction Status Date / Time moxifloxacin HCl AdvReac Rash/Hives/Shortness Verified 02/18/20 17:15 [From Avelox] of Breath prochlorperazine edisylate AdvReac Confusion Verified 02/18/20 17:15 [From Compazine] prochlorperazine maleate AdvReac Confusion Verified 02/18/20 17:15 [From Compazine] Physical Exam Vitals: Vital Signs Temp Pulse Pulse Resp BP BP Pulse Ox 02/19/20 07:00 98.0 F 75 17 124/71 92 L 02/19/20 02:03 82 16 163/96 95 02/19/20 01:40 98.5 F 95 18 198/106 96 02/18/20 22:58 16 02/18/20 20:23 88 02/18/20 20:12 90 02/18/20 20:00 16 02/18/20 19:11 98.2 F 76 16 141/81 96 02/18/20 18:25 98.4 F 79 20 143/98 93 L 02/18/20 15:28 92 18 02/18/20 15:15 88 20 02/18/20 14:55 24 02/18/20 13:53 98 F 80 18 153/102 95 Intake and Output 02/18/20 02/19/20 02/19/20 22:59 06:59 14:59 Intake Total 650 300 420 Balance 650 300 420 Intake: Intake, IV Titration 250 Amount Azithromycin 500 mg In 250 Sodium Chloride 0.9% 250 ml @ 250 mls/hr IVPB DAILY@1600 [facility] Rx#: [id number] Oral 400 300 420 Other: Voiding Method Toilet # Voids 2 2 Weight 90.718 kg GENERAL EXAM: Alert, very pleasant, 45-year-old white male, on room air, comfortable in no apparent distress. HEAD: Normocephalic/atraumatic. EYES: Normal reaction of pupils, equal size. Conjunctiva pink, sclera white. NOSE: Clear with pink turbinates. THROAT: No erythema or exudates. NECK: No masses, no JVD, no thyroid enlargement, no adenopathy. CHEST: No chest wall deformity. Symmetrical expansion. LUNGS: Equal air entry with no crackles, wheeze, rhonchi or dullness. CVS: Regular rate and rhythm, normal S1 and S2, no gallops, no murmurs, no rubs ABDOMEN: Soft, nontender. No hepatosplenomegaly, normal bowel sounds, no guarding or rigidity. EXTREMITIES: No clubbing, no edema, no cyanosis, 2+ pulses and upper and lower extremities. MUSCULOSKELETAL: Muscle strength and tone normal. SPINE: No scoliosis or deformity SKIN: No rashes CENTRAL NERVOUS SYSTEM: Alert and oriented -3. No focal deficits, tone is normal in all 4 extremities. PSYCHIATRIC: Alert and oriented -3. Appropriate affect. Intact judgment and insight. Results - Laboratory Findings CBC and BMP: 02/19/20 06:35 02/19/20 06:35 PT/INR, D-dimer D-Dimer 0.29 mg/L FEU (<0.60) 02/18/20 14:45 Abnormal lab findings: Abnormal Labs 02/18/20 02/18/20 02/18/20 14:45 14:45 14:45 WBC 15.0 H Neutrophils # 11.3 H Sodium Glucose ALT 107 H C-Reactive Protein 19.3 H 02/19/20 02/19/20 06:35 06:35 WBC 17.3 H Neutrophils # Sodium 136 L Glucose 138 H ALT C-Reactive Protein - Diagnostic Findings Chest x-ray: report reviewed, image reviewed Additional studies: CT of the brain and cervical spine Assessment and Plan Plan: Assessment: #1. Acute exacerbation of COPD with acute tracheobronchitis with failure of outpatient treatment #2. Fall, related to possible cough syncope. CT of the head and cervical spine was negative #3. Suspected COPD, severity of which is unknown at this time #4. Previous episodes of pneumonia on a yearly basis for which patient requires antibiotics #5. Previous history of smoking, currently in remission #6. Hypertension Plan: Patient is doing well, significantly improved since admission, responded well to IV steroids and antibiotics, breathing treatments, chest x-ray showed no acute pulmonary process, vital signs are stable, no fever or chills, increase activity as tolerated, from pulmonary perspective patient ischemic considered for discharge home today on outpatient course of antibiotics and oral steroids, Ventolin and Breo Ellipta. He will need outpatient follow-up with Dr. Urban in the office in 3 weeks and will need outpatient PFT in the office to determine his pulmonary function I performed a history & physical examination of the patient and discussed their management with my nurse practitioner, Dolores Jenkins. I reviewed the nurse practitioner's note and agree with the documented findings and plan of care. Lung sounds are positive for clear breath sounds. The findings and the impres marika was discussed with the patient. I attest to the documentation by the nurse practitioner. Time with Patient: Greater than 30
[2020-02-19] MEDS: FAMOTIDINE 20 MG TAB PO SCH (12:29)
[2020-02-19] MEDS: AZITHROMYCIN 500 MG in SODIUM CHLORIDE 0.9% 250 ML IVPB SCH (17:28)
[2020-02-19] MEDS: CHLORTHALIDONE 25 MG TAB PO SCH (20:27)
--- NOTE | 2020-02-19 20:40 | P.PN ---
Progress Note - Text Progress Note Date: 02/19/20 Presenting complaint: Short of breath History of presenting complaint: Patient is a 45-year-old male past medical history of high blood pressure, once yearly pneumonia that he typically takes antibiotics and uses a nebulizer 4, and recent smoking cessation approximately 2 months ago who presented to the emergency department secondary to shortness of breath and wheezing. The ER he underwent extensive evaluation. Vital signs within normal limits on admission. Laboratory analysis showed a white blood cell count 15, CRP slightly elevated at 19.3, Covid negative. Chest x-ray showed no acute process. In the ER he received 2 [id number] breathing treatments, Solu- Medrol, and IV Zithromax. He did not have significant improvement in his wheezing and he was subsequently admitted for acute bronchitis. Patient seen and examined at bedside. He has been sick for the last 3-4 weeks with cough productive of clear sputum, shortness of breath, runny nose, stuffy nose, postnasal drip. He's been seen at Dr. Person's office multiple times in the ER at [facility] and here. He has had 2 rounds of antibiotics of Ceftin year and a Z-Damian, he is also had 2 rounds of steroids. He was seen last approximately 4 days ago and given a prescription for nystatin and Pepcid. He reports that last evening he again started having coughing fits and wheezing. He states every 30 minutes he was either using his inhaler or his nebulizers it was without relief. This morning he used his nebulizer twice and inhalers still without relief and presented to the ER. He reports that his breathing is worse when he tries to lay down as he feels the sputum building up or with ambulation. No fevers at home, no chills, no nausea, no vomiting, no diarrhea. Appetite has been well. He has been feeling slightly more fatigued. He reports that his ribs ache when he coughs that he is starting to develop a sore throat. He denies any recent exposure to different chemicals, new carpet, new pets or any new potential allergens that he could think of. Today-patient was picked up by my service. He had some wheezing this morning but feeling better later in the afternoon. Less shortness of breath. Decreased cough. Some yellow sputum. Eating better. Review of systems: Was done for constitutional, cardiovascular, GI, pulmonary. relevant finding as above Active Medications Acetaminophen (Tylenol Tab) 650 mg PO Q6HR PRN PRN Reason: Mild Pain or Fever > 100.5 Hydrocodone Bitart/Acetaminophen ([place] 5-325) 1 each PO Q4HR PRN PRN Reason: Moderate Pain Albuterol Sulfate (Ventolin Hfa Inhaler) 2 puff INHALATION RT-QID [facility] Last Admin: 02/19/20 19:54 Dose: 2 puff Documented by: Albuterol/Ipratropium (Duoneb 0.5 Mg-3 Mg/3 Ml Soln) 3 ml INHALATION RT-Q4H PRN PRN Reason: Shortness Of Breath Or Wheezing Calcium Carbonate/Glycine (Tums) 500 mg PO TID [facility] Last Admin: 02/19/20 17:28 Dose: 500 mg Documented by: Chlorthalidone (Hygroton) 25 mg PO HS [facility] Last Admin: 02/19/20 20:27 Dose: 25 mg Documented by: Famotidine (Pepcid) 20 mg PO DAILY [facility] Last Admin: 02/19/20 12:29 Dose: 20 mg Documented by: Azithromycin 500 mg/ Sodium (Chloride) 250 mls @ 250 mls/hr IVPB DAILY@1600 [facility] Last Admin: 02/19/20 17:28 Dose: 250 mls/hr Documented by: Methylprednisolone Sodium Succinate (Solu-Medrol) 60 mg IV Q6HR [facility] Last Admin: 02/19/20 17:28 Dose: 60 mg Documented by: Naloxone HCl (Narcan) 0.2 mg IV Q2M PRN PRN Reason: Opioid Reversal Nystatin (Mycostatin Oral Susp) 500,000 unit PO QID [facility] Last Admin: 02/19/20 17:28 Dose: 500,000 unit Documented by: Ondansetron HCl (Zofran) 4 mg IVP Q8HR PRN PRN Reason: Nausea And Vomiting On examination: VITAL SIGNS: 98.5, 108, 15, 157/88, 92% room air GENERAL APPEARANCE: BMI 31.3, sitting up in bed, not in distress. HEENT: Normal external appearance of nose and ear. Oral cavity normal EYES: Pupils equal. Conjunctiva normal. NECK: JVD not raised. Mass not palpable. RESPIRATORY: Respiratory effort increased. Lungs-decreased breath sounds. CARDIOVASCULAR: First and second sounds normal. No edema. ABDOMEN: Soft. Liver and spleen not palpable. No tenderness. No mass palpable. PSYCHIATRY: Alert and oriented x3. Mood and affect slightly anxious INVESTIGATIONS, reviewed in the clinical context: : White count 7.3 hemoglobin 14.4 platelets 217 potassium 4.1 creatinine 0.78 Previous testing Covid-19 PCR-not detected. Head and cervical spine computed tomography scan-unremarkable Chest x-ray-no infiltrates Assessment: -Acute COPD exacerbation in an ex-smoker -Acute bronchitis -Obesity BMI 31.3 -Essential hypertension Plan: Care was discussed with the patient. Doing better since admission. We'll cut back on steroids. Encouraged the patient ablate. Hopefully discharge tomorrow.
[2020-02-19] MEDS: ENOXAPARIN 40 MG/0.4 ML SYRINGE SQ SCH (21:23)
[2020-02-19] MEDS: methylPREDNISolone SOD SUCCI 40 MG/ML 1 ML VIAL IV SCH (23:41)
[2020-02-20 07:18] LABS: Basophils % (A) 0 %; Eosinophils % (A) 0 %; HGB 14.3 gm/dL (13.0-17.5); Lymphocytes # (A) 1.7 k/uL (1.0-4.8); Lymphocytes % (A) 5 %; MCH 30.8 pg (25.0-35.0); MCV 90.5 fL (80.0-100.0); Mean Platelet Volume 6.9; Monocytes % (A) 3 %; Neutrophils # (A) 28.9 k/uL (1.3-7.7); Neutrophils % (A) 91 %; Platelet Count 241 k/uL (150-450); RBC 4.64 m/uL (4.30-5.90); RDW 13.5 % (11.5-15.5); WBC 31.7 k/uL (3.8-10.6)
[2020-02-20 07:33] LABS: African American GFR (CKD) >90 (>60 ml/min/1.73 sqM); Anion Gap 8 mmol/L; Blood Urea Nitrogen 19 mg/dL (9-20); Calcium 9.5 mg/dL (8.4-10.2); Carbon Dioxide 29 mmol/L (22-30); Chloride 99 mmol/L (98-107); Glucose 125 mg/dL (74-99); Non-African American GFR(CKD) >90 (>60 ml/min/1.73 sqM); Potassium 4.1 mmol/L (3.5-5.1); Sodium 136 mmol/L (137-145)
[2020-02-20] MEDS: ALBUTEROL HFA INHALER INHALATION SCH ×4 (08:01→20:31)
[2020-02-20] MEDS ORDERED: guaiFENesin-Coden 100-10MG/5ML 10 ML CUP PO PRN (09:15)
[2020-02-20] MEDS: NYSTATIN 100,000 UNIT/ML SUSP 500,000 UNIT/5 ML CUP PO SCH ×4 (09:22→20:09)
[2020-02-20] MEDS: FAMOTIDINE 20 MG TAB PO SCH (09:22)
[2020-02-20] MEDS: CALCIUM CARBONATE 500 MG CHEWABLE PO SCH ×3 (09:22→20:09)
[2020-02-20] MEDS: methylPREDNISolone SOD SUCCI 40 MG/ML 1 ML VIAL IV SCH (09:41)
--- NOTE | 2020-02-20 11:15 | P.PN ---
Subjective Progress Note Date: 02/20/20 Principal diagnosis: Severe cough, cough syncope, COPD exacerbation with acute bronchitis 45-year-old white male patient of Dr. Person with past history of smoking, in remission for the past year, has been having symptoms of cough, wheezing and congestion for last 2 weeks. Patient has a home nebulizer, usually has a yearly episode of bronchitis or pneumonia that he typically takes antibiotics for. He presented to the emergency department on 02/18/2020 for evaluation of worsening shortness of breath, wheezing, mild sputum production which he describes as clear in color. No hemoptysis, reports some chest tightness and heaviness, exertional dyspnea. He completed a course of azithromycin and is nearly done with the course of Cefdinir, and 2 courses of steroids without relief. He denied any fever or chills, denied any nausea, vomiting, diarrhea, denied any loss of taste or smell. No rash, no abdominal pain, no lightheadedness or dizziness, no weakness, no headaches. Chest x-ray showed no acute pulmonary process. Labs showed white blood cell count 15.0, hemoglobin of 15.3, platelet count was 246, neutrophil, is 11.3, d-dimer 0.29, electrolytes and renal profile were within normal limits, plasma lactic acid is 1.4, ferritin level was within normal limits at 202, AST was 47, ALT was 107, alkaline phosphatase was 116, LDH was 508, CRP was 19.3, coronavirus was negative. Patient was started on combination of IV steroids, azithromycin, DuoNeb nebulized treatments. He is feeling better on today's exam, vital signs are stable, her pulse ox is 92-95%, his been afebrile, hemodynamically stable, only occasional cough with production of small amount of clear sputum, he is responded well to IV steroids, breathing treatments, lung sounds are clear on today's exam. Follow-up labs have been reviewed, showing white blood cell count 17.3, hemoglobin is 14.4, electrolytes and renal profile are unremarkable. Can probably be discharged home today. CT of the head and C-spine was completed in view of patient's fall, and neck pain, and showed mild spondylosis in the lower cervical spine, no fracture, and a negative computed tomography scan of the brain. On 02/20/2020 patient seen in follow-up on general medical floor. He was sitting up on the edge of the bed, in no acute distress, still has some wheezing and episodes of severe coughing spells and while coughing patient had a witnessed brief episode of syncope lasting a few seconds, after which she recovered. Patient remains on IV Solu-Medrol 40 mg every 8 hours, azithromycin, still bronchospastic and have been having cough syncope. Not quite ready for discharge. We'll obtain echocardiogram. Today's labs have been reviewed showing increase in leukocytosis, white blood cell, 31.7, hemoglobin of 14.3, electrolytes and renal profile were unremarkable Objective - Vital Signs Vital signs: Vital Signs Temp 98.4 F 02/20/20 07:35 Pulse 78 02/20/20 07:35 Resp 16 02/20/20 07:35 BP 134/87 02/20/20 07:35 Pulse Ox 91 L 02/20/20 07:35 Intake & Output 02/19/20 02/20/20 02/20/20 18:59 06:59 18:59 Intake Total 1080 250 222 Balance 1080 250 222 Intake: Intake, IV Titration 250 Amount Azithromycin 500 mg In 250 Sodium Chloride 0.9% 250 ml @ 250 mls/hr IVPB DAILY@1600 [facility] Rx#: [id number] Oral 1080 222 Other: Voiding Method Toilet # Voids 1 2 - Exam GENERAL EXAM: Alert, very pleasant, 45-year-old white male, on room air, comfortable in no apparent distress. HEAD: Normocephalic/atraumatic. EYES: Normal reaction of pupils, equal size. Conjunctiva pink, sclera white. Patient has a bruise over his left eye related to a fall and cough syncope NOSE: Clear with pink turbinates. THROAT: No erythema or exudates. NECK: No masses, no JVD, no thyroid enlargement, no adenopathy. CHEST: No chest wall deformity. Symmetrical expansion. LUNGS: Equal air entry with no crackles, wheeze, rhonchi or dullness. CVS: Regular rate and rhythm, normal S1 and S2, no gallops, no murmurs, no rubs ABDOMEN: Soft, nontender. No hepatosplenomegaly, normal bowel sounds, no guarding or rigidity. EXTREMITIES: No clubbing, no edema, no cyanosis, 2+ pulses and upper and lower extremities. MUSCULOSKELETAL: Muscle strength and tone normal. SPINE: No scoliosis or deformity SKIN: No rashes CENTRAL NERVOUS SYSTEM: Alert and oriented -3. No focal deficits, tone is normal in all 4 extremities. PSYCHIATRIC: Alert and oriented -3. Appropriate affect. Intact judgment and insight. - Labs CBC & Chem 7: 02/20/20 06:36 02/20/20 06:36 Labs: Abnormal Lab Results - Last 24 Hours (Table) 02/18/20 02/20/20 02/20/20 Range/Units 14:45 06:36 06:36 WBC 31.7 H (3.8-10.6) k/uL Neutrophils # 28.9 H (1.3-7.7) k/uL Sodium 136 L (137-145) mmol/L Glucose 125 H (74-99) mg/dL Procalcitonin 0.10 H (0.02-0.09) ng/mL Microbiology - Last 24 Hours (Table) 02/18/20 16:45 Blood Culture - Preliminary Blood No Growth after 24 hours Assessment and Plan Plan: Assessment: #1. Acute exacerbation of COPD with acute tracheobronchitis with failure of outpatient treatment #2. Fall, related to possible cough syncope. CT of the head and cervical spine was negative #3. Suspected COPD, severity of which is unknown at this time #4. Previous episodes of pneumonia on a yearly basis for which patient requires antibiotics #5. Previous history of smoking, currently in remission #6. Hypertension Plan: We'll increase the dose of IV steroids to 60 mg every 6 hours, patient is still having significant coughing and had an episode of cough syncope right in front of us. We will and some Robitussin with codeine, continue azithromycin, we'll add Symbicort, will obtain echocardiogram in view of cough syncope, rule out pulmonary hypertension. We'll continue to follow. Follow-up CBC in the morning I performed a history & physical examination of the patient and discussed their management with my nurse practitioner, Dolores Jenkins. I reviewed the nurse practitioner's note and agree with the documented findings and plan of care. Lung sounds are positive for clear breath sounds. The findings and the impression was discussed with the patient. I attest to the documentation by the nurse practitioner. Time with Patient: Less than 30
[2020-02-20] MEDS: methylPREDNISolone SOD SUCCI 125 MG/2 ML VIAL IV SCH ×3 (12:38→23:12)
[2020-02-20] MEDS: AZITHROMYCIN 500 MG in SODIUM CHLORIDE 0.9% 250 ML IVPB SCH (17:48)
[2020-02-20] MEDS: LORATADINE 10 MG TAB PO SCH ×2 (17:49→20:09)
--- NOTE | 2020-02-20 19:53 | P.PN ---
Progress Note - Text Progress Note Date: 02/20/20 Presenting complaint: Short of breath History of presenting complaint: Patient is a 45-year-old male past medical history of high blood pressure, once yearly pneumonia that he typically takes antibiotics and uses a nebulizer 4, and recent smoking cessation approximately 2 months ago who presented to the emergency department secondary to shortness of breath and wheezing. The ER he underwent extensive evaluation. Vital signs within normal limits on admission. Laboratory analysis showed a white blood cell count 15, CRP slightly elevated at 19.3, Covid negative. Chest x-ray showed no acute process. In the ER he received 2 [id number] breathing treatments, Solu- Medrol, and IV Zithromax. He did not have significant improvement in his wheezing and he was subsequently admitted for acute bronchitis. Patient seen and examined at bedside. He has been sick for the last 3-4 weeks with cough productive of clear sputum, shortness of breath, runny nose, stuffy nose, postnasal drip. He's been seen at Dr. Person's office multiple times in the ER at [facility] and here. He has had 2 rounds of antibiotics of Ceftin year and a Z-Damian, he is also had 2 rounds of steroids. He was seen last approximately 4 days ago and given a prescription for nystatin and Pepcid. He reports that last evening he again started having coughing fits and wheezing. He states every 30 minutes he was either using his inhaler or his nebulizers it was without relief. This morning he used his nebulizer twice and inhalers still without relief and presented to the ER. He reports that his breathing is worse when he tries to lay down as he feels the sputum building up or with ambulation. No fevers at home, no chills, no nausea, no vomiting, no diarrhea. Appetite has been well. He has been feeling slightly more fatigued. He reports that his ribs ache when he coughs that he is starting to develop a sore throat. He denies any recent exposure to different chemicals, new carpet, new pets or any new potential allergens that he could think of. Admitted with-COPD exacerbation and acute bronchitis. Today-. More bouts of coughing this morning. Early seen by pulmonary. Increased IV steroids. Less wheezing though. Review of systems: Was done for constitutional, cardiovascular, GI, pulmonary. relevant finding as above Active Medications Acetaminophen (Tylenol Tab) 650 mg PO Q6HR PRN PRN Reason: Mild Pain or Fever > 100.5 Hydrocodone Bitart/Acetaminophen ([place] 5-325) 1 each PO Q4HR PRN PRN Reason: Moderate Pain Albuterol Sulfate (Ventolin Hfa Inhaler) 2 puff INHALATION RT-QID [facility] Last Admin: 02/20/20 15:52 Dose: 2 puff Documented by: Albuterol/Ipratropium (Duoneb 0.5 Mg-3 Mg/3 Ml Soln) 3 ml INHALATION RT-Q4H PRN PRN Reason: Shortness Of Breath Or Wheezing Budesonide/Formoterol Fumarate (Symbicort 160-4.5 Mcg Inhaler) 2 puff INHALATION RT-BID [facility] Calcium Carbonate/Glycine (Tums) 500 mg PO TID [facility] Last Admin: 02/20/20 17:49 Dose: 500 mg Documented by: Chlorthalidone (Hygroton) 25 mg PO HS [facility] Last Admin: 02/19/20 20:27 Dose: 25 mg Documented by: Enoxaparin Sodium (Lovenox) 40 mg SQ Q24H [facility] Last Admin: 02/19/20 21:23 Dose: 40 mg Documented by: Famotidine (Pepcid) 20 mg PO DAILY [facility] Last Admin: 02/20/20 09:22 Dose: 20 mg Documented by: Guaifenesin/Codeine Phosphate (Robitussin Ac) 10 ml PO Q6H PRN PRN Reason: Cough Azithromycin 500 mg/ Sodium (Chloride) 250 mls @ 250 mls/hr IVPB DAILY@1600 [facility] Last Admin: 02/20/20 17:48 Dose: 250 mls/hr Documented by: Loratadine (Claritin) 5 mg PO Q12HR [facility] Last Admin: 02/20/20 17:49 Dose: 5 mg Documented by: Methylprednisolone Sodium Succinate (Solu-Medrol) 60 mg IV Q6HR [facility] Last Admin: 02/20/20 17:49 Dose: 60 mg Documented by: Naloxone HCl (Narcan) 0.2 mg IV Q2M PRN PRN Reason: Opioid Reversal Nystatin (Mycostatin Oral Susp) 500,000 unit PO QID [facility] Last Admin: 02/20/20 17:49 Dose: 500,000 unit Documented by: Ondansetron HCl (Zofran) 4 mg IVP Q8HR PRN PRN Reason: Nausea And Vomiting On examination: VITAL SIGNS: 97.8, 73, 16, 149/94, 97% on room air GENERAL APPEARANCE: BMI 31.3, sitting in a chair, slightly tired. HEENT: Normal external appearance of nose and ear. Oral cavity normal EYES: Pupils equal. Conjunctiva normal. NECK: JVD not raised. Mass not palpable. RESPIRATORY: Respiratory effort increased. Lungs-decreased breath sounds. CARDIOVASCULAR: First and second sounds normal. No edema. ABDOMEN: Soft. Liver and spleen not palpable. No tenderness. No mass palpable. PSYCHIATRY: Alert and oriented x3. Mood and affect slightly anxious INVESTIGATIONS, reviewed in the clinical context: White count 31.7 hemoglobin 14.3 pressure 4.1 crit 0.85 Previous testing Covid-19 PCR-not detected. Head and cervical spine computed tomography scan-unremarkable Chest x-ray-no infiltrates Assessment: -Acute COPD exacerbation in an ex-smoker, with some worsening this morning -Acute bronchitis -Obesity BMI 31.3 -Essential hypertension Plan: IV Solu-Medrol increase by pulmonary today. Other medications to continue. Discussed with the patient. Encouraged to ambulate.
[2020-02-20] MEDS: ENOXAPARIN 40 MG/0.4 ML SYRINGE SQ SCH (20:09)
[2020-02-20] MEDS: CHLORTHALIDONE 25 MG TAB PO SCH (20:09)
[2020-02-20] MEDS: SYMBICORT 160-4.5 MCG INHALER INHALATION SCH (20:31)
[2020-02-21] MEDS: methylPREDNISolone SOD SUCCI 125 MG/2 ML VIAL IV SCH (05:35)
[2020-02-21 07:40] VITALS: BP 99/56; PULSE 54; RESP 16; TEMP 98
[2020-02-21] MEDS: ALBUTEROL HFA INHALER INHALATION SCH ×2 (07:45→11:10)
[2020-02-21] MEDS: SYMBICORT 160-4.5 MCG INHALER INHALATION SCH (07:46)
[2020-02-21] MEDS: NYSTATIN 100,000 UNIT/ML SUSP 500,000 UNIT/5 ML CUP PO SCH (07:52)
[2020-02-21] MEDS: LORATADINE 10 MG TAB PO SCH (07:52)
[2020-02-21] MEDS: CALCIUM CARBONATE 500 MG CHEWABLE PO SCH (07:52)
[2020-02-21] MEDS: FAMOTIDINE 20 MG TAB PO SCH (07:52)
[2020-02-21 07:58] LABS: HCT 40.4 % (39.0-53.0); HGB 13.7 gm/dL (13.0-17.5); Mean Platelet Volume 6.8; Platelet Count 226 k/uL (150-450); RBC 4.44 m/uL (4.30-5.90); RDW 13.7 % (11.5-15.5); WBC 25.6 k/uL (3.8-10.6)
--- NOTE | 2020-02-21 08:57 | ECHOF ---
Referral Reason:cough induced syncope/pulm. hypertension MEASUREMENTS -------- HEIGHT: 170.2 cm WEIGHT: 90.7 kg BP: 134/87 RVIDd: 3.3 cm (< 3.3) IVSd: 1.3 cm (0.6 - 1.1) LVIDd: 4.6 cm (3.9 - 5.3) LVPWd: 1.3 cm (0.6 - 1.1) IVSs: 1.7 cm LVIDs: 3.1 cm LVPWs: 1.5 cm LA Diam: 3.3 cm (2.7 - 3.8) LAESV Index (A-L): 19.58 ml/m Ao Diam: 3.0 cm (2.0 - 3.7) AV Cusp: 2.0 cm (1.5 - 2.6) MV EXCURSION: 17.245 mm (> 18.000) MV EF SLOPE: 135 mm/s (70 - 150) EPSS: 0.2 cm MV E Javier: 0.95 m/s MV DecT: 239 ms MV A Javier: 0.92 m/s MV E/A Ratio: 1.03 RAP: 5.00 mmHg RVSP: 21.00 mmHg FINDINGS -------- Sinus rhythm. This was a technically adequate study. The left ventricular size is normal. There is mild concentric left ventricular hypertrophy. Overa ll left ventricular systolic function is normal with, an EF between 60 - 65 %. The right ventricle is mildly enlarged. Normal LA size by volume 22+/-6 ml/m2. The right atrium is normal in size. Interatrial and interventricular septum intact. The aortic valve is trileaflet and appears structurally normal. The mitral valve is normal. Mild tricuspid regurgitation present. Right ventricular systolic pressure is normal at < 35 mmHg. Trace/mild (physiologic) pulmonic regurgitation. The aortic root size is normal. Normal inferior vena cava with normal inspiratory collapse consistent with estimated right atrial pre ssure of 5 mmHg. There is no pericardial effusion. CONCLUSIONS -------- 1. Sinus rhythm. 2. This was a technically adequate study. 3. The left ventricular size is normal. 4. There is mild concentric left ventricular hypertrophy. 5. Overall left ventricular systolic function is normal with, an EF between 60 - 65 %. 6. The right ventricle is mildly enlarged. 7. Normal LA size by volume 22+/-6 ml/m2. 8. The right atrium is normal in size. 9. Interatrial and interventricular septum intact. 10. The aortic valve is trileaflet and appears structurally normal. 11. The mitral valve is normal. 12. Mild tricuspid regurgitation present. 13. Right ventricular systolic pressure is normal at < 35 mmHg. 14. Trace/mild (physiologic) pulmonic regurgitation. 15. The aortic root size is normal. 16. Normal inferior vena cava with normal inspiratory collapse consistent with estimated right atrial pressure of 5 mmHg. 17. There is no pericardial effusion. STATE ARCHIVIST: Christin Earl RDCS
[2020-02-21] MEDS ORDERED: predniSONE 20 MG TAB PO SCH (10:29)
--- NOTE | 2020-02-21 12:23 | P.PN ---
Subjective Progress Note Date: 02/21/20 Principal diagnosis: Severe cough, cough syncope, COPD exacerbation with acute bronchitis 45-year-old white male patient of Dr. Person with past history of smoking, in remission for the past year, has been having symptoms of cough, wheezing and congestion for last 2 weeks. Patient has a home nebulizer, usually has a yearly episode of bronchitis or pneumonia that he typically takes antibiotics for. He presented to the emergency department on 02/18/2020 for evaluation of worsening shortness of breath, wheezing, mild sputum production which he describes as clear in color. No hemoptysis, reports some chest tightness and heaviness, exertional dyspnea. He completed a course of azithromycin and is nearly done with the course of Cefdinir, and 2 courses of steroids without relief. He denied any fever or chills, denied any nausea, vomiting, diarrhea, denied any loss of taste or smell. No rash, no abdominal pain, no lightheadedness or dizziness, no weakness, no headaches. Chest x-ray showed no acute pulmonary process. Labs showed white blood cell count 15.0, hemoglobin of 15.3, platelet count was 246, neutrophil, is 11.3, d-dimer 0.29, electrolytes and renal profile were within normal limits, plasma lactic acid is 1.4, ferritin level was within normal limits at 202, AST was 47, ALT was 107, alkaline phosphatase was 116, LDH was 508, CRP was 19.3, coronavirus was negative. Patient was started on combination of IV steroids, azithromycin, DuoNeb nebulized treatments. He is feeling better on today's exam, vital signs are stable, her pulse ox is 92-95%, his been afebrile, hemodynamically stable, only occasional cough with production of small amount of clear sputum, he is responded well to IV steroids, breathing treatments, lung sounds are clear on today's exam. Follow-up labs have been reviewed, showing white blood cell count 17.3, hemoglobin is 14.4, electrolytes and renal profile are unremarkable. Can probably be discharged home today. CT of the head and C-spine was completed in view of patient's fall, and neck pain, and showed mild spondylosis in the lower cervical spine, no fracture, and a negative computed tomography scan of the brain. On 02/20/2020 patient seen in follow-up on general medical floor. He was sitting up on the edge of the bed, in no acute distress, still has some wheezing and episodes of severe coughing spells and while coughing patient had a witnessed brief episode of syncope lasting a few seconds, after which she recovered. Patient remains on IV Solu-Medrol 40 mg every 8 hours, azithromycin, still bronchospastic and have been having cough syncope. Not quite ready for discharge. We'll obtain echocardiogram. Today's labs have been reviewed showing increase in leukocytosis, white blood cell, 31.7, hemoglobin of 14.3, electrolytes and renal profile were unremarkable On 02/21/2020 patient seen in follow-up on general medical floor, he is awake and alert, in no acute distress. He is breathing easier, his cough seems to be improving, he is on room air, with a pulse ox 95%, he is ambulating about the ro om, denies any specific complaints, less bronchospastic on today's exam, he is on IV steroids, and antibiotics, has been afebrile, today's labs have been reviewed showing improving white blood cell count down to 25.6, hemoglobin is 13.7. Echocardiogram was reviewed showing no evidence of pulmonary hypertension with right-sided pressures of less than 35 mmHg, and preserved LV function with EF of 60-65%, and no evidence of valvular heart disease. Clinically stable, patient is requesting to go home today. Objective - Vital Signs Vital signs: Vital Signs Temp 98.0 F 02/21/20 07:00 Pulse 54 L 02/21/20 07:00 Resp 16 02/21/20 07:00 BP 99/56 02/21/20 07:00 Pulse Ox 95 02/21/20 07:00 Intake & Output 02/20/20 02/21/20 02/21/20 18:59 06:59 18:59 Intake Total 444 240 340 Balance 444 240 340 Intake: Oral 444 240 340 Other: Voiding Method Toilet Toilet # Voids 1 - Exam GENERAL EXAM: Alert, very pleasant, 45-year-old white male, on room air with a pulse ox of 95% comfortable in no apparent distress. HEAD: Normocephalic/atraumatic. EYES: Normal reaction of pupils, equal size. Conjunctiva pink, sclera white. Patient has a bruise over his left eye related to a fall and cough syncope NOSE: Clear with pink turbinates. THROAT: No erythema or exudates. NECK: No masses, no JVD, no thyroid enlargement, no adenopathy. CHEST: No chest wall deformity. Symmetrical expansion. LUNGS: Equal air entry with no crackles, wheeze, rhonchi or dullness. CVS: Regular rate and rhythm, normal S1 and S2, no gallops, no murmurs, no rubs ABDOMEN: Soft, nontender. No hepatosplenomegaly, normal bowel sounds, no guarding or rigidity. EXTREMITIES: No clubbing, no edema, no cyanosis, 2+ pulses and upper and lower extremities. MUSCULOSKELETAL: Muscle strength and tone normal. SPINE: No scoliosis or deformity SKIN: No rashes CENTRAL NERVOUS SYSTEM: Alert and oriented -3. No focal deficits, tone is normal in all 4 extremities. PSYCHIATRIC: Alert and oriented -3. Appropriate affect. Intact judgment and insight. - Labs CBC & Chem 7: 02/21/20 07:12 02/20/20 06:36 Labs: Abnormal Lab Results - Last 24 Hours (Table) 02/21/20 Range/Units 07:12 WBC 25.6 H (3.8-10.6) k/uL Microbiology - Last 24 Hours (Table) 02/18/20 16:45 Blood Culture - Preliminary Blood No Growth after 48 hours Assessment and Plan Plan: Assessment: #1. Acute exacerbation of COPD with acute tracheobronchitis with failure of outpatient treatment #2. Fall, related to possible cough syncope. CT of the head and cervical spine was negative #3. Suspected COPD, severity of which is unknown at this time #4. Previous episodes of pneumonia on a yearly basis for which patient requires antibiotics #5. Previous history of smoking, currently in remission #6. Hypertension Plan: Patient is doing well, no recurrent episodes of cough syncope, breathing easier, less bronchospastic, cough has subsided. Today's labs have been noted, white blood cell count is trending down, no fever or chills. Tolerating ambulation, cardiogram results have been noted, no evidence of pulmonary hypertension, patient has preserved LV function, and no valvular heart disease, no acute events overnight. he was advised to refrain from driving until his coughing completely resolved. From pulmonary perspective patient is stable for discharge home he can complete outpatient course of antibiotics and oral steroids. Foll ow-up with Dr. Wilmar in the office in 3 weeks. I performed a history & physical examination of the patient and discussed their management with my nurse practitioner, Dolroes Jenkins. I reviewed the nurse practitioner's note and agree with the documented findings and plan of care. Lung sounds are positive for clear breath sounds. The findings and the impression was discussed with the patient. I attest to the documentation by the nurse practitioner. Time with Patient: Less than 30
[2020-02-21] MEDS ORDERED: AZITHROMYCIN 500 MG TAB PO SCH (18:00)
--- NOTE | 2020-02-22 12:38 | CDI ---
Documentation Clarification Form Date: 02/22/20 From: Linda Mares Phone: If you have a question about this query, please contact Emmy Knox, Drop Man at [phone] between 8am and 5pm. Admit Date: 02/20/20 Discharge Date: 02/21/20 Patient Name: KATHY MARTIN Visit Number:[id number] ATTENTION: The Clinical Documentation Specialists (CDI) and [facility] Coding Staff appreciate your assistance in clarifying documentation. Please respond to the clarification below the line at the bottom and electronically sign. The CDI & [facility] Coding staff will review the response and follow-up if needed. Please note: Queries are made part of the Legal Health Record. If you have any questions, please contact the author of this message via ITS. Dear Dr. Kun Banuelos, Candidiasis is documented in the H&P. Patient history/risk factors: HTN, spondylosis of cervical spine, obesity Clinical Indicators: He has been sick for the last 3-4 weeks with cough productive of clear sputum, shortness of breath, runny nose, stuffy nose, postnasal drip. He's been seen at Dr. Person's office multiple times in the ER at [facility] and here. He has had 2 rounds of antibiotics of Ceftin year and a Z-Damian, he is also had 2 rounds of steroids. He reports that his ribs ache when he coughs that he is starting to develop a sore throat. CXR: no acute pulmonary process. Labs: COVID negative Vital Signs: T-98.4, P-92, R-20, BP-153/112, O2-93 Medication: Nystatin 100.000 unit/ml susp 500,000 unit PO QID In your professional opinion, can the site of the Candidiasis be further specified as one of the following? Mouth Stomatitis Candidiasis of other sites, please specify Other, please specify Unable to determine Unable to determine MTDD
--- NOTE | 2020-02-22 20:56 | P.DS ---
Providers Date of admission: 02/20/20 13:19 Expected date of discharge: 02/21/20 Attending physician: Kun Banuelos Consults: 02/18/20 16:32 Consult Physician Routine Consulting Provider: Felipe Austin Consult Reason/Comments: Dyspnea Do you want consulting provider notified?: Yes Primary care physician: Ray De La Cruz [facility] Course: Presenting complaint: Short of breath History of presenting complaint: Patient is a 45-year-old male past medical history of high blood pressure, once yearly pneumonia that he typically takes antibiotics and uses a nebulizer 4, and recent smoking cessation approximately 2 months ago who presented to the emergency department secondary to shortness of breath and wheezing. The ER he underwent extensive evaluation. Vital signs within normal limits on admission. Laboratory analysis showed a white blood cell count 15, CRP slightly elevated at 19.3, Covid negative. Chest x-ray showed no acute process. In the ER he received 2 [id number] breathing treatments, Solu- Medrol, and IV Zithromax. He did not have significant improvement in his wheezing and he was subsequently admitted for acute bronchitis. Patient seen and examined at bedside. He has been sick for the last 3-4 weeks with cough productive of clear sputum, shortness of breath, runny nose, stuffy nose, postnasal drip. He's been seen at Dr. Person's office multiple times in the ER at [facility] and here. He has had 2 rounds of antibiotics of Ceftin year and a Z-Damian, he is also had 2 rounds of steroids. He was seen last approximately 4 days ago and given a prescription for nystatin and Pepcid. He reports that last evening he again started having coughing fits and wheezing. He states every 30 minutes he was either using his inhaler or his nebulizers it was without relief. This morning he used his nebulizer twice and inhalers still without relief and presented to the ER. He reports that his breathing is worse when he tries to lay down as he feels the sputum building up or with ambulation. No fevers at home, no chills, no nausea, no vomiting, no diarrhea. Appetite has been well. He has been feeling slightly more fatigued. He reports that his ribs ache when he coughs that he is starting to develop a sore throat. He denies any recent exposure to different chemicals, new carpet, new pets or any new potential allergens that he could think of. Admitted with-COPD exacerbation and acute bronchitis. Started on steroids and bronchodilators. Today-. Feeling greatly improved. Up and about. No wheezing. Eager to go home. Consultation: Dr. Remy from pulmonary On examination: VITAL SIGNS: 98, 54, 16, 99/56, 95% on room air GENERAL APPEARANCE: Sitting up, comfortable HEENT: Normal external appearance of nose and ear. Oral cavity normal EYES: Pupils equal. Conjunctiva normal. NECK: JVD not raised. Mass not palpable. RESPIRATORY: Respiratory effort normal. Improved air entry. CARDIOVASCULAR: First and second sounds normal. No edema. ABDOMEN: Soft. Liver and spleen not palpable. No tenderness. No mass palpable. PSYCHIATRY: Alert and oriented x3. Mood and affect slightly anxious INVESTIGATIONS, reviewed in the clinical context: White count 25.6 hemoglobin 13.7 Previous testing Covid-19 PCR-not detected. Head and cervical spine computed tomography scan-unremarkable Chest x-ray-no infiltrates Assessment: -Acute COPD exacerbation in an ex-smoker,, POA-improved -Acute bronchitis -Obesity BMI 31.3 -Essential hypertension Disposition: Home Patient Condition at Discharge: Stable Plan - Discharge Summary Discharge Rx Participant: No New Discharge Prescriptions: New predniSONE 10 mg PO DAILY #30 tab Acetaminophen Tab [Tylenol] 650 mg PO Q6HR PRN tab PRN Reason: Mild Pain Or Fever > 100.5 Azithromycin [Zithromax] 250 mg PO DAILY 3 Days #3 tab Continue Nystatin 100,000 Unit/ml Susp [Mycostatin Oral Susp] 500,000 unit PO QID Famotidine 20 mg PO BID Chlorthalidone 25 mg PO HS Fluticasone/Vilanterol [Breo Ellipta 200-25 Mcg INH] 1 puff INHALATION RT- DAILY@1500 Albuterol Nebulized [Ventolin Nebulized] 2.5 mg INHALATION RT-BID PRN PRN Reason: Shortness Of Breath Albuterol Inhaler [Ventolin Hfa Inhaler] 2 puff INHALATION RT-QID PRN PRN Reason: Shortness Of Breath Discontinued Cefdinir [Omnicef] 300 mg PO BID Discharge Medication List Albuterol Inhaler [Ventolin Hfa Inhaler] 2 puff INHALATION RT-QID PRN 02/18/20 [History] Albuterol Nebulized [Ventolin Nebulized] 2.5 mg INHALATION RT-BID PRN 02/18/20 [History] Chlorthalidone 25 mg PO HS 02/18/20 [History] Famotidine 20 mg PO BID 02/18/20 [History] Fluticasone/Vilanterol [Breo Ellipta 200-25 Mcg INH] 1 puff INHALATION RT- DAILY@1500 02/18/20 [History] Nystatin 100,000 Unit/ml Susp [Mycostatin Oral Susp] 500,000 unit PO QID 02/18/20 [History] Acetaminophen Tab [Tylenol] 650 mg PO Q6HR PRN tab 02/20/20 [Rx] Azithromycin [Zithromax] 250 mg PO DAILY 3 Days #3 tab 02/20/20 [Rx] predniSONE 10 mg PO DAILY #30 tab 02/20/20 [Rx] Follow up Appointment(s)/Referral(s): Andre Remy MD [STAFF PHYSICIAN] - 03/05/20 10:00 am Ray Person MD [Primary Care Provider] - 02/27/20 2:00 pm Patient Instructions/Handouts: Pneumonia (DC) Discharge Disposition: HOME SELF-CARE
== END 2020-02-21 11:34 | disposition home or self-care (01) | DRG 192 ==
LOC: EC 13:52 → 4SSUR 17:00 → OBSVTOIN 02-20 13:19
PROVIDERS: ADMIT Hospitalist; ATTEND Hospitalist
DX: J44.0 Chronic obstructive pulmonary disease with (acute) lower respiratory infection (principal); I10 Essential (primary) hypertension; B37.9 Candidiasis, unspecified; M47.812 Spondylosis without myelopathy or radiculopathy, cervical region; E66.9 Obesity, unspecified; J20.9 Acute bronchitis, unspecified; J44.1 Chronic obstructive pulmonary disease with (acute) exacerbation; Z20.828 Contact with and (suspected) exposure to other viral communicable diseases; I16.0 Hypertensive urgency; Z68.31 Body mass index [BMI] 31.0-31.9, adult; Z79.51 Long term (current) use of inhaled steroids; Z79.899 Other long term (current) drug therapy; Z87.01 Personal history of pneumonia (recurrent); Z87.442 Personal history of urinary calculi; Z87.891 Personal history of nicotine dependence; Z98.890 Other specified postprocedural states; Z88.1 Allergy status to other antibiotic agents; Z88.8 Allergy status to other drugs, medicaments and biological substances; Z82.49 Family history of ischemic heart disease and other diseases of the circulatory system
CPT/HCPCS: 36415; 70450; 71045; 72125; 80048; 80053; 82728; 83605; 83615; 83735; 84145; 85025; 85027; 85379; 86140; 87040; 87635; 93005; 93306; 94640; 96361; 96374; 99285

== ENCOUNTER 2020-07-11 10:39 | Day surgery (SDC) | payer OTHER ==
[2020-07-10 08:52] VITALS: BMI 32.8
[~2020-07-11 10:39] MED LIST: LACTATED RINGERS 1,000 ML IV SCH
[2020-07-11 10:59] VITALS: TEMP 98.1
[2020-07-11] MEDS ORDERED: LIDOCAINE 1% (10MG/ML) FOR IV START INTRADERMA ONE (11:04)
[2020-07-11] MEDS ORDERED: PROPOFOL 10 MG/ML 20 ML VIAL IV ONE (11:31)
[2020-07-11] MEDS ORDERED: LIDOCAINE 1% INJ 10MG/ML (20 ML MDV) ONE (11:31)
--- NOTE | 2020-07-11 11:58 | P.PCN ---
Date of Procedure: 07/11/20 Description of Procedure: BRIEF HISTORY: Patient is a 45-year-old male presenting for outpatient EGD for evaluation of GERD. Patient reports worsening reflux after an upper respiratory tract infection. He reports persistence of symptoms despite treatment with antacid medications. PROCEDURE PERFORMED: Esophagogastroduodenoscopy with biopsy. PREOPERATIVE DIAGNOSIS: GERD. ESTIMATED BLOOD LOSS: Minimal. IV sedation per anesthesia. PROCEDURE: After informed consent was obtained, the patient was brought into the endoscopy unit. IV sedation was administered by Anesthesia under continuous monitoring. Initially the Olympus GIF-190 video endoscope was inserted into the mouth. Esophagus intubated without any difficulty. It was gradually advanced into the stomach and duodenum and carefully examined. The bulb and the second part of the duodenum appeared normal, with biopsies taken. The scope at this time was withdrawn to the stomach, adequately insufflated with air, and upon careful examination, mucosa of the antrum, body, cardia and the fundus appeared normal, except for some mild punctate erythema in the antrum suggestive of mild gastritis with biopsies of the antrum body. The scope was then withdrawn into the esophagus. The GE junction was located at 39 cm from the incisors, and biopsied. The esophagus appeared normal, with midesophagus esophageal biopsies taken to rule out eosinophilic esophagitis. There were no erosions or ulcerations seen and the patient tolerated the procedure well. IMPRESSION: 1. Mild Gastritis. 2. Biopsies of the antrum and body, GE junction, duodenum and esophagus. RECOMMENDATIONS: The findings of this examination were discussed with the patient as well as his family. Okay to resume diet. Okay to resume medications. Await pathology from biopsies. Follow up with PCP as previously scheduled.
[2020-07-11 12:13] VITALS: BP 145/95; PULSE 58; RESP 16
== END 2020-07-11 12:34 ==
LOC: ORWHC2ENDO 10:39
PROVIDERS: ATTEND Internal Medicine
DX: K29.50 Unspecified chronic gastritis without bleeding (principal); K21.0 Gastro-esophageal reflux disease with esophagitis; I10 Essential (primary) hypertension; J45.909 Unspecified asthma, uncomplicated; Z87.891 Personal history of nicotine dependence; Z88.1 Allergy status to other antibiotic agents; Z88.8 Allergy status to other drugs, medicaments and biological substances; Z79.899 Other long term (current) drug therapy; Z87.442 Personal history of urinary calculi; Z98.890 Other specified postprocedural states
CPT/HCPCS: 88305; 88342; 43239; J2001; J2704

== ENCOUNTER 2021-07-22 01:44 | Emergency (ER) | payer OTHER ==
[2021-07-22 01:49] VITALS: BP 194/90; PULSE 68; RESP 17; TEMP 98.7
[2021-07-22] MEDS ORDERED: PROPARACAINE 0.5% OPHTH DROPS 15 ML BTL LEFT EYE STA (01:50)
[2021-07-22] MEDS ORDERED: FLUORESCEIN STRIPS 1 MG STRIP RIGHT EYE STA (01:50)
[2021-07-22] MEDS ORDERED: ERYTHROMYCIN 5 MG/GM OPHTH OINT 1 GM TUBE RIGHT EYE STA (02:19)
[2021-07-22] MEDS ORDERED: IBUPROFEN 600 MG TAB PO STA (02:19)
--- NOTE | 2021-07-22 02:21 | ED ---
General Adult HPI - General Chief complaint: Eye Problems Stated complaint: Injury-Eye Time Seen by Provider: 07/22/21 01:50 Source: patient Mode of arrival: ambulatory - History of Present Illness Initial comments: 46-year-old male presents to the emergency room for a chief complaint of right eye pain. Patient states that about 4 hours ago he was laying on the couch with his dog. His dog lifted his pot and scratched his eye. Patient states since that time has been painful. He tried to sleep but it was very your taking to him. States it makes his vision a little blurry. Patient denies any history of contact use.Patient has no other complaints at this time including shortness of breath, chest pain, abdominal pain, nausea or vomiting, headache, or visual changes. - Related Data Home Medications Medication Instructions Recorded Confirmed Albuterol Inhaler [Ventolin Hfa 2 puff INHALATION RT-QID PRN 02/18/20 07/11/20 Inhaler] Chlorthalidone 25 mg PO HS 02/18/20 07/11/20 Famotidine 40 mg PO DAILY 02/18/20 07/11/20 Previous Rx's Medication Instructions Recorded Acetaminophen Tab [Tylenol] 650 mg PO Q6HR PRN tab 02/20/20 Erythromycin Ophth Oint [Romycin 1 applic RIGHT EYE QID 7 Days #1 gm 07/22/21 Ophth Oint] Allergies Allergy/AdvReac Type Severity Reaction Status Date / Time moxifloxacin HCl AdvReac Rash/Hives/Shortness Verified 07/22/21 01:49 [From Avelox] of Breath prochlorperazine edisylate AdvReac Confusion Verified 07/22/21 01:49 [From Compazine] prochlorperazine maleate AdvReac Confusion Verified 07/22/21 01:49 [From Compazine] Review of Systems ROS Statement: Those systems with pertinent positive or pertinent negative responses have been documented in the HPI. ROS Other: All systems not noted in ROS Statement are negative. Past Medical History Past Medical History: GERD/Reflux, Hypertension, Pneumonia Additional Past Medical History / Comment(s): Kidney stones, INPT IN JANUARY FOR SOB,. SEVERE HEARTBURN, CHOKING OF FOOD History of Any Multi-Drug Resistant Organisms: None Reported Past Surgical History: Ear Surgery Additional Past Surgical History / Comment(s): Tympanostomy tubes Past Anesthesia/Blood Transfusion Reactions: No Reported Reaction Past Psychological History: No Psychological Hx Reported Smoking Status: Current every day smoker Past Alcohol Use History: None Reported Past Drug Use History: None Reported - Past Family History Father History Unknown: Yes Family Medical History: No Reported History, Hypertension General Exam General appearance: alert, in no apparent distress Head exam: Present: atraumatic Eye exam: Present: PERRL, EOMI, conjunctival injection (Erythema noted of the right conjunctiva). Absent: periorbital swelling, periorbital tenderness Expanded Eyelids: Normal Inspection: Bilateral Pupils: Regular, Round: Bilateral Sclera/Conjunctival: Injection: Right Visual acuity (R) = 20/: 40 Visual acuity (L) = 20/: 25 Course Vital Signs 07/22/21 01:45 Temperature 98.7 F Pulse Rate 68 Respiratory 17 Rate Blood Pressure 194/90 O2 Sat by Pulse 97 Oximetry Medical Decision Making - Medical Decision Making The eye was anesthetized with proparacaine is to alleviate patient's pain momentarily. Fluorescein stain was used with the Wood's lamp. Patient does have corneal abrasion noted at about 3:00 on the right eye. Negative Lew sign. Visual acuity 20/40 OD, 20/25 OS. No history of contact usage. Erythromycin applied. Tetanus are up-to-date. Patient can be discharged home to follow up with primary care or ophthalmology. Will return here for any worsening symptoms. Disposition Clinical Impression: Corneal abrasion Disposition: HOME SELF-CARE Condition: Good Instructions (If sedation given, give patient instructions): Corneal Abrasion (ED) Additional Instructions: Apply antibiotic ointment as directed to the right eye. Follow up with primary care and ophthalmology. Return to the emergency room for any worsening symptoms. Prescriptions: Erythromycin Ophth Oint [Romycin Ophth Oint] 1 applic RIGHT EYE QID 7 Days #1 gm Is patient prescribed a controlled substance at d/c from ED?: No Referrals: Ray Person MD [Primary Care Provider] - 1-2 days John Gray MD [STAFF PHYSICIAN] - 1-2 days Time of Disposition: 02:19
== END 2021-07-22 02:28 | disposition home or self-care (01) ==
LOC: EC 01:44
DX: S05.01XA Injury of conjunctiva and corneal abrasion without foreign body, right eye, initial encounter (principal); I10 Essential (primary) hypertension; K21.9 Gastro-esophageal reflux disease without esophagitis; F17.200 Nicotine dependence, unspecified, uncomplicated; Z79.51 Long term (current) use of inhaled steroids; Z79.899 Other long term (current) drug therapy; Z88.8 Allergy status to other drugs, medicaments and biological substances; W22.8XXA Striking against or struck by other objects, initial encounter
CPT/HCPCS: 99283

== ENCOUNTER → 2024-07-17 | Outpatient (CLI) | payer OTHER ==
--- NOTE | 2024-07-18 13:51 | CA ---
Transthoracic Echo Report Name: Regan Headley Age: 49 Gender: M : 1975 Exam Date: 07/17/2024 17:22 Exam Location: [facility] Ht (in): 67 Wt (lb): 210 Ordering Physician: Ray Person MD Attending/Referring Phys: Krystal oVgt [facility] [employer] Specialist Ashley Lewis RDCS Procedure CPT: Indications: I10 HYPERTENSION Cardiac Hx: Technical Quality: Fair Contrast 1: Total Dose (mL): Contrast 2: Total Dose (mL): MEASUREMENTS (Male / Female) Normal Values 2D ECHO LV Diastolic Diameter PLAX 4.1 cm 4.2 - 5.9 / 3.9 - 5.3 cm LV Systolic Diameter PLAX 2.3 cm IVS Diastolic Thickness 1.3 cm 0.6 - 1.0 / 0.6 - 0.9 cm LVPW Diastolic Thickness 1.6 cm 0.6 - 1.0 / 0.6 - 0.9 cm LV Relative Wall Thickness 0.7 RV Internal Dim ED PLAX 3.2 cm LA Volume 30.0 cm??? 18 - 58 / 22 - 52 cm??? LA Volume Index 13.9 cm???/m??? 16 - 28 cm???/m??? M-MODE Aortic Root Diameter MM 3.6 cm LA Systolic Diameter MM 3.5 cm LA Ao Ratio MM 1.0 AV Cusp Separation MM 1.7 cm DOPPLER AV Peak Velocity 117.5 cm/s AV Peak Gradient 5.5 mmHg AV Mean Velocity 75.4 cm/s AV Mean Gradient 2.7 mmHg AV Velocity Time Integral 17.8 cm LVOT Peak Velocity 106.3 cm/s LVOT Peak Gradient 4.5 mmHg LVOT Velocity Time Integral 14.5 cm MV Area PHT 3.0 cm??? Mitral E Point Velocity 57.3 cm/s Mitral A Point Velocity 67.3 cm/s Mitral E to A Ratio 0.9 MV Deceleration Time 252.3 ms MV E' Velocity 3.7 cm/s Mitral E to MV E' Ratio 15.6 FINDINGS Left Ventricle Mildly increased left ventricular wall thickness. Left ventricular cavity size normal. Normal left ventricular systolic function with no obvious regional wall motion abnormalities. Left ventricular ejection fraction is estimated at 55-60 %. Right Ventricle Normal right ventricular size and function. Right ventricular systolic pressure within normal limits. Right Atrium Normal right atrial size. Left Atrium Normal left atrial size. Mitral Valve Structurally normal mitral valve. No mitral stenosis, regurgitation or prolapse. Aortic Valve Trileaflet aortic valve. No aortic valve stenosis or regurgitation. Tricuspid Valve Structurally normal tricuspid valve. Mild tricuspid regurgitation. Pulmonic Valve Structurally normal pulmonic valve. Pericardium No pericardial effusion. Aorta Normal size aortic root and proximal ascending aorta. CONCLUSIONS Normal LV systolic function Previewed by: Dr. Ronald Reed MD (Electronically Signed) Final Date: 18 July 2024 13:50
== END | disposition home or self-care (01) ==
LOC: RADECHMAIN 17:19
PROVIDERS: ATTEND Family Medicine
DX: I10 Essential (primary) hypertension (principal)
CPT/HCPCS: 93306